=== PATIENT | male | born 1945 | race Caucasian/White ===

== ENCOUNTER 2018-12-16 04:43 | Inpatient (IN) ==
[2018-12-16] MEDS ORDERED: 0.9 % Sodium Chloride 1,000 ML IVC ONE (04:53)
[2018-12-16 05:36] LABS: Basophils # 0.1 K/mcL (0.0-0.2); Basophils % 0.6 %; Eosinophils # 0.3 K/mcL (0.0-0.6); Eosinophils % 3.2 %; Hematocrit 47.1 % (37.5-50.1); Hemoglobin 15.2 g/dL (12.9-16.9); Immature Granulocytes % 0.3 % (0-4); Lymphocytes # 1.7 K/mcL (0.6-4.6); Lymphocytes % 16.9 %; Mean Corpuscular HGB Conc 32.3 g/dL (31.6-35.5); Mean Corpuscular Hemoglobin 29.7 pg (28.0-33.3); Mean Corpuscular Volume 92.2 fL (83.0-100.0); Mean Platelet Volume 10.3 fL (9.4-12.4); Monocytes # 0.9 K/mcL (0.0-1.3); Monocytes % 8.7 %; Neutrophils # 7.2 K/mcL (1.6-8.9); Platelet Count 132 K/mcL (140-400); Red Blood Count 5.11 M/mcL (4.19-5.50); Red Cell Distribution Width 14.1 % (11.5-14.5); Segmented Neutrophils % 70.3 %
[2018-12-16 05:51] LABS: INR 1.4; Prothrombin Time 15.2 Seconds (9.4-12.1)
[2018-12-16 05:54] LABS: BUN/Creatinine Ratio 35 (6-26); Blood Urea Nitrogen 28 mg/dL (8-23); Calcium 9.5 mg/dL (8.6-10.3); Carbon Dioxide 23 mEq/L (23-29); Chloride 104 mEq/L (98-107); Glucose 102 mg/dL (70-105); Osmolality,Calculated 290 (280-300); Potassium 4.3 mEq/L (3.5-5.1); Sodium 137 mEq/L (136-145); eGFR For Non-African Americans > 60 (> 60)
[2018-12-16 05:56] LABS: Platelet Estimate Slight Decrease (Normal)
--- NOTE | 2018-12-16 07:10 | Emergency Department Note ---
Disposition Clinical Impression: GI bleed Qualifiers: GI bleed type/associated pathology: unspecified gastrointestinal hemorrhage type Qualified Code(s): K92.2 - Gastrointestinal hemorrhage, unspecified Abdominal pain Qualifiers: Abdominal location: unspecified location Qualified Code(s): R10.9 - Unspecified abdominal pain Disposition: Admitted As Inpatient Condition: Good Referrals: NONE,PCP [Primary Care Provider] - Time of Disposition: 07:13 General Adult HPI - General Stated complaint: rectal bleeding Time Seen by Provider: 12/16/18 04:44 Source: patient, EMS, other Mode of arrival: EMS Limitations: no limitations Nursing Notes Reviewed: Yes Vital Signs Reviewed: Yes - History of Present Illness HPI Narrative: Patient is a 73-year-old male that presents emergency department as a transfer via EMS from the [facility] for blood in his stool. Patient states that he was initially admitted to the [facility] for abdominal pain. Patient states that he was then given laxatives on the medical floor and this morning the patient around 2 AM developed blood in his stool. Due to the patient being on warfarin and lack a GI coverage at the [facility] he was transferred here to [place] for further care. Patient states that he still having some abdominal discomfort. Patient states that he has only had hemorrhoids one other time and that was back in the 1960s. Patient states it was bright red blood. Patient states that it was mixed in with diarrhea. Patient denies any vomiting. Patient denies any difficulty with urination. Pain Scale: 4 - Related Data Home Medications Medication Instructions Recorded Confirmed Nitroglycerin [Nitrostat] 0.4 mg SL Q5M PRN 10/27/15 10/10/18 Warfarin [Coumadin] 2.5 mg PO QMWF 01/26/16 10/10/18 Pantoprazole Sodium 40 mg PO DAILY 06/08/16 10/10/18 Aspirin [Lo-Dose Aspirin EC] 81 mg PO DAILY 04/25/17 10/10/18 Warfarin [Coumadin] 5 mg PO SUTUTHSA 04/27/17 10/10/18 Atorvastatin [Lipitor] 80 mg PO HS 08/11/17 10/10/18 Losartan Potassium [Cozaar] 25 mg PO DAILY 08/11/17 10/10/18 Magnesium Oxide [Magnesium] 400 mg PO DAILY 11/10/17 10/10/18 Metoprolol [Lopressor] 25 mg PO DAILY 05/11/18 10/10/18 Sotalol HCl [Betapace] 120 mg PO BID 05/11/18 10/10/18 Spironolactone [Aldactone] 25 mg PO DAILY 05/11/18 10/10/18 Tiotropium [Spiriva] 18 mcg IH 0700 05/11/18 10/10/18 Albuterol Neb [AccuNeb] 0.63 mg IH BID PRN 10/10/18 10/10/18 Loratadine [Claritin] 10 mg PO DAILY 10/10/18 10/10/18 Allergies Allergy/AdvReac Type Severity Reaction Status Date / Time oxycodone [Oxycodone] AdvReac Hallucinati Verified 12/16/18 04:49 ng All systems ED: reviewed and negative except as stated. Constitutional: Denies: fever Cardiovascular: Denies: chest pain Respiratory: Denies: dyspnea Gastrointestinal: Reports: abdominal pain, diarrhea, hematochezia. Denies: nausea, vomiting Genitourinary: Denies: urgency, dysuria, frequency Past Medical History - Past Medical History Medical history: Reports: aortic aneurysm, atrial fibrillation, cancer, coronary artery disease, renal disease, other Surgical history: Reports: cancer surgery, cataract, orthopedic, other, other Psychiatric history: Reports: no psych history - Social History Smoking Status: Former smoker Smokeless Tobacco Status: No Alcohol use: Reports: none Drug use: Reports: none Physical Exam - General Limitations: no limitations General appearance: alert, in no apparent distress - Head Head exam: atraumatic, normocephalic - Eye Eye exam: Present: normal appearance, EOMI - Neck Neck exam: Present: normal inspection, full ROM, trachea midline - Respiratory Respiratory exam: Present: normal lung sounds bilaterally. Absent: respiratory distress, wheezes - Cardiovascular Cardiovascular exam: Present: regular rate, normal rhythm, normal heart sounds, +S1, +S2 - Abdominal Exam Abdominal exam: Present: soft, tenderness (Generalized), normal bowel sounds Abdominal tenderness: Present: mild - Rectal Exam Drug Counselor present during exam: Yes Rectal exam: Present: normal rectal tone, heme (+) stool, hemorrhoids (External) - Neurological Exam Neurological exam: Present: alert, oriented X3 - Psychiatric Psychiatric exam: Present: normal affect, normal mood - Skin Skin exam: Present: warm, dry, intact Course Vital Signs Temperature 97.4 F L 12/16/18 04:47 Pulse Rate 88 12/16/18 04:47 Respiratory Rate 20 12/16/18 04:47 Blood Pressure 104/79 12/16/18 04:47 O2 Sat by Pulse Oximetry 96 12/16/18 04:47 Temperature 97.4 F L 12/16/18 04:51 Pulse Rate 70 12/16/18 06:00 Respiratory Rate 20 12/16/18 06:00 Blood Pressure 144/75 12/16/18 06:00 O2 Sat by Pulse Oximetry 94 12/16/18 06:00 Oxygen Delivery Oxygen Delivery Room Air Medical Decision Making - MDM Narrative Medical decision making narrative: Due the patient since emergency Department with reports of blood in his stool and being on warfarin obtain basic laboratory testing. Patient's hemoglobin is stable at greater than 15. His INR is 1.4. Remainder of his laboratory testing is relatively unremarkable. However due to the patient having a positive stool occult here in the ER and being on Coumadin and [facility] not having a [facility] or GI coverage the patient will require admission here for further monitoring. Patient is in agreement with this plan. I called and spoke with the admitting hospitalist Dr. Thompson and he is accepted the patient to their service to patient be admitted to the hospital this time for further evaluation and management of his GI bleed. - Medical Records Medical records reviewed: Yes I reviewed the patient's medical records. - Lab Data Lab results reviewed: Yes I reviewed the patient's lab results. Result diagrams: 12/16/18 05:23 12/16/18 05:23 Lab Results 12/16/18 12/16/18 12/16/18 Range/Units 05:18 05:23 05:23 WBC 10.3 (4.3-11.1) K/mcL RBC 5.11 (4.19-5.50) M/mcL Hgb 15.2 (12.9-16.9) g/dL Hct 47.1 (37.5-50.1) % MCV 92.2 (83.0-100.0) fL MCH 29.7 (28.0-33.3) pg MCHC 32.3 (31.6-35.5) g/dL RDW 14.1 (11.5-14.5) % Plt Count 132 L (140-400) K/mcL MPV 10.3 (9.4-12.4) fL Immature Gran % 0.3 (0-4) % Seg Neutrophils % 70.3 % Lymphocytes % 16.9 % Monocytes % 8.7 % Eosinophils % 3.2 % Basophils % 0.6 % Neutrophils # 7.2 (1.6-8.9) K/mcL Lymphocytes # 1.7 (0.6-4.6) K/mcL Monocytes # 0.9 (0.0-1.3) K/mcL Eosinophils # 0.3 (0.0-0.6) K/mcL Basophils # 0.1 (0.0-0.2) K/mcL Platelet Estimate Slight Decrease L (Normal) PT 15.2 H (9.4-12.1) Seconds INR 1.4 APTT 24.0 L (26.0-36.0) Seconds Sodium (136-145) mEq/L Potassium (3.5-5.1) mEq/L Chloride (98-107) mEq/L Carbon Dioxide (23-29) mEq/L BUN (8-23) mg/dL Creatinine (0.70-1.30) mg/dL Est GFR ( Amer) (> 60) Est GFR (Non-Af Amer) (> 60) BUN/Creatinine Ratio (6-26) Glucose (70-105) mg/dL Calculated Osmolality (280-300) Calcium (8.6-10.3) mg/dL Stool Occult Bld Scrn Positive A (Negative) Blood Type Antibody Screen 12/16/18 12/16/18 Range/Units 05:23 05:23 WBC (4.3-11.1) K/mcL RBC (4.19-5.50) M/mcL Hgb (12.9-16.9) g/dL Hct (37.5-50.1) % MCV (83.0-100.0) fL MCH (28.0-33.3) pg MCHC (31.6-35.5) g/dL RDW (11.5-14.5) % Plt Count (140-400) K/mcL MPV (9.4-12.4) fL Immature Gran % (0-4) % Seg Neutrophils % % Lymphocytes % % Monocytes % % Eosinophils % % Basophils % % Neutrophils # (1.6-8.9) K/mcL Lymphocytes # (0.6-4.6) K/mcL Monocytes # (0.0-1.3) K/mcL Eosinophils # (0.0-0.6) K/mcL Basophils # (0.0-0.2) K/mcL Platelet Estimate (Normal) PT (9.4-12.1) Seconds INR APTT (26.0-36.0) Seconds Sodium 137 (136-145) mEq/L Potassium 4.3 (3.5-5.1) mEq/L Chloride 104 (98-107) mEq/L Carbon Dioxide 23 (23-29) mEq/L BUN 28 H (8-23) mg/dL Creatinine 0.80 (0.70-1.30) mg/dL Est GFR ( Amer) > 60 (> 60) Est GFR (Non-Af Amer) > 60 (> 60) BUN/Creatinine Ratio 35 H (6-26) Glucose 102 (70-105) mg/dL Calculated Osmolality 290 (280-300) Calcium 9.5 (8.6-10.3) mg/dL Stool Occult Bld Scrn (Negative) Blood Type B NEGATIVE Antibody Screen NEGATIVE - Radiology Data Radiology results reviewed: Yes I reviewed the patient's radiology results.
--- NOTE | 2018-12-16 08:09 | Emergency Department Note ---
Disposition Clinical Impression: GI bleed Qualifiers: GI bleed type/associated pathology: unspecified gastrointestinal hemorrhage type Qualified Code(s): K92.2 - Gastrointestinal hemorrhage, unspecified Abdominal pain Qualifiers: Abdominal location: unspecified location Qualified Code(s): R10.9 - Unspecified abdominal pain Disposition: Admitted As Inpatient Condition: Good Referrals: NONE,PCP [Primary Care Provider] - General Adult HPI - General Chief complaint: ED GI Bleed Stated complaint: rectal bleeding Time Seen by Provider: 12/16/18 04:44 Source: patient, EMS, other Mode of arrival: EMS Limitations: no limitations Nursing Notes Reviewed: Yes Vital Signs Reviewed: Yes - History of Present Illness Pain Scale: 3 - Related Data Home Medications Medication Instructions Recorded Confirmed Nitroglycerin [Nitrostat] 0.4 mg SL Q5M PRN 10/27/15 10/10/18 Warfarin [Coumadin] 2.5 mg PO QMWF 01/26/16 10/10/18 Pantoprazole Sodium 40 mg PO DAILY 06/08/16 10/10/18 Aspirin [Lo-Dose Aspirin EC] 81 mg PO DAILY 04/25/17 10/10/18 Warfarin [Coumadin] 5 mg PO SUTUTHSA 04/27/17 10/10/18 Atorvastatin [Lipitor] 80 mg PO HS 08/11/17 10/10/18 Losartan Potassium [Cozaar] 25 mg PO DAILY 08/11/17 10/10/18 Magnesium Oxide [Magnesium] 400 mg PO DAILY 11/10/17 10/10/18 Metoprolol [Lopressor] 25 mg PO DAILY 05/11/18 10/10/18 Sotalol HCl [Betapace] 120 mg PO BID 05/11/18 10/10/18 Spironolactone [Aldactone] 25 mg PO DAILY 05/11/18 10/10/18 Tiotropium [Spiriva] 18 mcg IH 0700 05/11/18 10/10/18 Albuterol Neb [AccuNeb] 0.63 mg IH BID PRN 10/10/18 10/10/18 Loratadine [Claritin] 10 mg PO DAILY 10/10/18 10/10/18 Allergies Allergy/AdvReac Type Severity Reaction Status Date / Time oxycodone [Oxycodone] AdvReac Hallucinati Verified 12/16/18 04:49 ng Constitutional: Denies: fever Cardiovascular: Denies: chest pain Respiratory: Denies: dyspnea Gastrointestinal: Reports: abdominal pain, diarrhea, hematochezia. Denies: nausea, vomiting Genitourinary: Denies: urgency, dysuria, frequency Past Medical History - Past Medical History Medical history: Reports: aortic aneurysm, atrial fibrillation, cancer, coronary artery disease, renal disease, other Surgical history: Reports: cancer surgery, cataract, orthopedic, other, other Psychiatric history: Reports: no psych history - Social History Smoking Status: Former smoker Smokeless Tobacco Status: No Alcohol use: Reports: none Drug use: Reports: none Physical Exam - General Limitations: no limitations General appearance: alert, in no apparent distress Course Vital Signs Temperature 97.4 F L 12/16/18 04:47 Pulse Rate 88 12/16/18 04:47 Respiratory Rate 20 12/16/18 04:47 Blood Pressure 104/79 12/16/18 04:47 O2 Sat by Pulse Oximetry 96 12/16/18 04:47 Temperature 97.4 F L 12/16/18 04:51 Pulse Rate 71 12/16/18 07:48 Respiratory Rate 20 12/16/18 07:48 Blood Pressure 131/78 12/16/18 07:48 O2 Sat by Pulse Oximetry 93 12/16/18 07:48 Oxygen Delivery Oxygen Delivery Room Air Medical Decision Making - Medical Records Medical records reviewed: Yes I reviewed the patient's medical records. - Lab Data Lab results reviewed: Yes I reviewed the patient's lab results. Result diagrams: 12/16/18 05:23 12/16/18 05:23 Lab Results 12/16/18 12/16/18 12/16/18 Range/Units 05:18 05:23 05:23 WBC 10.3 (4.3-11.1) K/mcL RBC 5.11 (4.19-5.50) M/mcL Hgb 15.2 (12.9-16.9) g/dL Hct 47.1 (37.5-50.1) % MCV 92.2 (83.0-100.0) fL MCH 29.7 (28.0-33.3) pg MCHC 32.3 (31.6-35.5) g/dL RDW 14.1 (11.5-14.5) % Plt Count 132 L (140-400) K/mcL MPV 10.3 (9.4-12.4) fL Immature Gran % 0.3 (0-4) % Seg Neutrophils % 70.3 % Lymphocytes % 16.9 % Monocytes % 8.7 % Eosinophils % 3.2 % Basophils % 0.6 % Neutrophils # 7.2 (1.6-8.9) K/mcL Lymphocytes # 1.7 (0.6-4.6) K/mcL Monocytes # 0.9 (0.0-1.3) K/mcL Eosinophils # 0.3 (0.0-0.6) K/mcL Basophils # 0.1 (0.0-0.2) K/mcL Platelet Estimate Slight Decrease L (Normal) PT 15.2 H (9.4-12.1) Seconds INR 1.4 APTT 24.0 L (26.0-36.0) Seconds Sodium (136-145) mEq/L Potassium (3.5-5.1) mEq/L Chloride (98-107) mEq/L Carbon Dioxide (23-29) mEq/L BUN (8-23) mg/dL Creatinine (0.70-1.30) mg/dL Est GFR ( Amer) (> 60) Est GFR (Non-Af Amer) (> 60) BUN/Creatinine Ratio (6-26) Glucose (70-105) mg/dL Calculated Osmolality (280-300) Calcium (8.6-10.3) mg/dL Stool Occult Bld Scrn Positive A (Negative) Blood Type Antibody Screen 12/16/18 12/16/18 Range/Units 05:23 05:23 WBC (4.3-11.1) K/mcL RBC (4.19-5.50) M/mcL Hgb (12.9-16.9) g/dL Hct (37.5-50.1) % MCV (83.0-100.0) fL MCH (28.0-33.3) pg MCHC (31.6-35.5) g/dL RDW (11.5-14.5) % Plt Count (140-400) K/mcL MPV (9.4-12.4) fL Immature Gran % (0-4) % Seg Neutrophils % % Lymphocytes % % Monocytes % % Eosinophils % % Basophils % % Neutrophils # (1.6-8.9) K/mcL Lymphocytes # (0.6-4.6) K/mcL Monocytes # (0.0-1.3) K/mcL Eosinophils # (0.0-0.6) K/mcL Basophils # (0.0-0.2) K/mcL Platelet Estimate (Normal) PT (9.4-12.1) Seconds INR APTT (26.0-36.0) Seconds Sodium 137 (136-145) mEq/L Potassium 4.3 (3.5-5.1) mEq/L Chloride 104 (98-107) mEq/L Carbon Dioxide 23 (23-29) mEq/L BUN 28 H (8-23) mg/dL Creatinine 0.80 (0.70-1.30) mg/dL Est GFR ( Amer) > 60 (> 60) Est GFR (Non-Af Amer) > 60 (> 60) BUN/Creatinine Ratio 35 H (6-26) Glucose 102 (70-105) mg/dL Calculated Osmolality 290 (280-300) Calcium 9.5 (8.6-10.3) mg/dL Stool Occult Bld Scrn (Negative) Blood Type B NEGATIVE Antibody Screen NEGATIVE Attestation Statement - Attestation Attestation: I, Ashutosh Pena MD, personally evaluated this patient and discussed their management with the resident physician. I reviewed the resident's note and agree with the documented findings, medical decision making, and plan of care. 73-year-old male who is admitted to the [facility] yesterday afternoon for complaint of abdominal pain. He was given some laxatives there and had several bowel movements during the night and then developed grossly bloody bowel movements a couple of times. He continues to complain of abdominal pain. He had a workup including a CT of the abdomen and pelvis. Patient is on Coumadin. He is transferred here because they do not have surgical or GI back up at the [facility]. Patient reports that he has had low blood pressures for the past for 5 days and abdominal pain for the past 2 or 3 days. No prior history of GI bleed. On examination patient is a well-developed well-nourished elderly male in no acute distress. He is alert and oriented 3. There is no cyanosis or diaphoresis. Breath sounds are clear and equal bilaterally. Heart regular rate and rhythm. Abdomen is soft with increased bowel sounds. Nontender to palpation. Labs reviewed. The hospitalist, Dr. Thompson, was consulted and accepted admission of the patient.
[2018-12-16] MEDS ORDERED: Acetaminophen 325 MG TABLET PO PRN (09:00)
[2018-12-16] MEDS ORDERED: Ondansetron 4 MG/2 ML VIAL IVP PRN (09:00)
[2018-12-16] MEDS ORDERED: Albuterol Neb 0.63 MG/3 ML VIAL IH PRN (09:14)
--- NOTE | 2018-12-16 09:15 | Internal Med History&Physical ---
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 Patient states his pain is mild, and improved with laxatives that made him have BM. However, the BM had a very large amount of blood per his and family's report. He is on warfarin for his A-Fib. He's had GI bleeds before, with most recent EGD here in 08/2018, and last colonoscopy over at [facility] was 1 month ago with no abnormalities/interventions at that time. He denies any dizziness or confusion, N/V, dysuria, edema, CP, or SOB. He was transferred to this facility due to no GI coverage at the [facility]. In the ED, pt vitals unremarkable and Hb 15, no episodes bloody bowel movements here. Pt type&screened, given bolus, and admitted for observation. Past medical, surgical, social, and family histories reviewed and updated as below. Past Med Surg Social Fam HX - Past Medical History Medical history: aortic aneurysm, atrial fibrillation, cancer, coronary artery disease, renal disease, other Additional medical history: lower intestine cancer-Whipple procedure for Psychiatric history: no psych history - Past Surgical History Surgical History: cancer surgery, cataract, orthopedic, other, other Additional surgical history: LHC,AAA repair, rt elbow,whipple, defib - Social History Smoking Status: Former smoker Smokeless Tobacco Status: No Alcohol use: none Drug use: none - Family History Sister Adopted: No Living Status: Still Living Hx Family Cardiac Disorders: No Hx Family Respiratory Disorders: No Hx Family Cancer: Yes Hx Family Endocrine Disorder: Yes Hx Family Neuromuscular Disorders: No Hx Family Neurologic Disorders: No Hx Family HEENT Disorders: No Hx Family Autoimmune Disorders: No Internal Medicine - H&P: Meds Nitroglycerin [Nitrostat] 0.4 mg SL Q5M PRN 10/27/15 [History] Warfarin [Coumadin] 2.5 mg PO QMWF 05/02/16 [History] Pantoprazole Sodium 40 mg PO DAILY 06/08/16 [History] Aspirin [Lo-Dose Aspirin EC] 81 mg PO DAILY 04/25/17 [History] Warfarin [Coumadin] 5 mg PO SUTUTHSA 04/27/17 [History] Atorvastatin [Lipitor] 80 mg PO HS 08/11/17 [History] Losartan Potassium [Cozaar] 25 mg PO DAILY 08/11/17 [History] Magnesium Oxide [Magnesium] 400 mg PO DAILY 11/10/17 [History] Metoprolol [Lopressor] 25 mg PO DAILY 05/11/18 [History] Sotalol HCl [Betapace] 120 mg PO BID 05/11/18 [History] Spironolactone [Aldactone] 25 mg PO DAILY 05/11/18 [History] Tiotropium [Spiriva] 18 mcg IH 0700 05/11/18 [History] Albuterol Neb [AccuNeb] 0.63 mg IH BID PRN 10/10/18 [History] Loratadine [Claritin] 10 mg PO DAILY 10/10/18 [History] Allergy/AdvReac Type Severity Reaction Status Date / Time oxycodone [Oxycodone] AdvReac Hallucinati Verified 12/16/18 04:49 ng All Systems PM: A 10-system review of systems was performed and is negative for pertinent findings except as documented above in the HPI. - Constitutional Vitals: Temp Pulse Resp BP Pulse Ox 97.4 F L 71 20 131/78 93 12/16/18 04:51 12/16/18 07:48 12/16/18 07:48 12/16/18 07:48 12/16/18 07:48 Exam: General: NAD, good eye contact, well appearing, in good spirits, thin but not emaciated Head: Atraumatic, normocephalic. Face symmetric Eyes: EOMI, sclerae anicteric ENT: Mucous membranes moist. Normal oral mucosa and dentition. Trachea midline. Thoracic: No visible chest wall deformities. Normal breath sounds b/l, no wheezing or crackles Cardio: Normal S1 and S2, regular rate and rhythm, no murmurs. Abdomen: Soft, nontender, nondistended. Bowel sounds present. No rebound. Does have abd scars from s/p Whipple. Extremities: Warm, well perfused. DP pulses 2+ b/l. No clubbing, cyanosis. No edema Skin: Intact. No rashes, bruises, or ulcers Neuro: Awake, fully oriented. Good memory, concentration, attention. Speech fluent. CN II-XII grossly intact. 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 GIB: hemodynamically stable, hb wnl, no episodes of bleeding here. Did have upper endoscopy in 08/2018 - T&C - monitor Hb - PPI IV bid - clear liquid diet - GenSurg Dr Hung consult, will plan for colonoscopy in AM Subtherapeutic INR: on admit is 1.4, will allow to downtrend and hold warfarin Thrombocytopenia: platelet count oscillating from 50-500k in our records, on admit is 130, will monitor and consider heme consult if continues to drop HFrEF 35%: s/p ICD, not overloaded but rec'd 1L NS in ED so will closely monitor, continue home ACEi and elmer, home lopressor should be changed to Toprol CAD/HLD: ASA, statin A-Fib: AC on warfarin which is being held, rate on lopressor 25 daily Underweight: BMI 18, concern for malnutrition in this s/p Whipple patient, nutrition consult PPx: SCDs FEN: clears, no MIVF Lines: PIV Consults: GenSurg Code: Full Dispo: Admit for GI bleeding, will be homegoing
[2018-12-16] MEDS ORDERED: Pantoprazole 40 MG in 0.9 % Sodium Chloride 50 ML IVPB ONE (09:16)
[2018-12-16] MEDS ORDERED: Pantoprazole 40 MG in 0.9 % Sodium Chloride Mini Bag 100 ML IVPB ONE ×2 (09:30→09:40)
[2018-12-16] MEDS ORDERED: Pantoprazole 40 MG in 0.9 % Sodium Chloride 100 ML IVPB ONE (09:40)
[2018-12-16] MEDS ORDERED: Pantoprazole 40 MG in 0.9 % Sodium Chloride Mini Bag 100 ML IVPB SCH (09:40)
--- NOTE | 2018-12-16 13:03 | General Surgery Consult Note ---
<Vimal Raymundo - Last Filed: 12/16/18 13:07> Date of Encounter: 12/16/18 Time of Encounter: 10:00 Assessment and Plan (1) BRBPR (bright red blood per rectum) Current Visit: Yes Status: Acute -Single episode "large amount" BRBPR at [facility] prior to transfer here -Mild bilat lower abdominal pain last few days -Possibly 2/2 ischemic colitis as he indicated his BP was 70s/40s on home BP machine prior to being called to come to [facility] for evaluation -Most recent BP since receiving IVF 141/83 -Has not had any further bloody stools -Hgb 15.2 on arrival, BUN mildly elevated at 28, stool occult pos, and INR 1.4 on home warfarin for afib -Awaiting CT abd image upload which was performed at [facility] -Self reported normal colonoscopy 3-4 weeks ago performed at [facility] -Will bowel prep with miralax today and make NPO at midnight for planned endoscopic procedure tomorrow morning (2) Abdominal pain Current Visit: Yes Status: Acute -Vague, mild bilateral lower abdominal pain over last few days -Pain improved now without pain meds Qualifiers: Abdominal location: lower abdomen, unspecified Qualified Code(s): R10.30 - Lower abdominal pain, unspecified History of Present Illness Consult date: 12/16/18 Reason for consult: other (bloody stool) Requesting physician: Melchor Thompson History of present illness: Pmh significant for 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 He has had bilateral lower abdominal discomfort over the last 2-3 days. Additionally, he has had decreased appetite, 15 pund weight loss, and periods of dizziness in orthostatic pattern over last few weeks. He checks daily blood pressure at home which is evaluated by [facility] daily. He had a reading of 70s/40s yesterday with normals being more 110s-120s systolic and was called to go to [facility] for evaluation. He was found to be orthostatic hypotensive and recieved 2L IVF along with laxitives as he said he last had BM on which is unusual for him given prior whipple. Around 0300 this morning he had a "large" bright red bloody BM which prompted transfer to [place]. He indicated abdominal pain improved some after the BM but prior to he did not feel urge to defecate. He denied diplopia, blurry vision, chest pain, dyspnea, N/V, any further bloody BM. He last had colonoscopy 3-4 weeks ago which he reports was normal. Upon arrival here, he was hemodynamically stable, received an additional L IVF, hgb 15.2, BUN 28, INR 1.4, and stool occult pos. Past Med Surg Social Fam HX - Past Medical History Medical history: aortic aneurysm, atrial fibrillation, cancer, coronary artery disease, renal disease, other Additional medical history: lower intestine cancer-Whipple procedure for Psychiatric history: no psych history - Past Surgical History Surgical History: cancer surgery, cataract, orthopedic, other, other Additional surgical history: LHC,AAA repair, rt elbow,whipple, defib - Social History Smoking Status: Former smoker Smokeless Tobacco Status: No Alcohol use: none Drug use: none - Family History Father Living Status: Age at : 73 Cause of : Aortic aneurysm Sister Adopted: No Living Status: Still Living Age at : 61 Cause of : Lung cancer Hx Family Cardiac Disorders: No Hx Family Respiratory Disorders: No Hx Family Cancer: Yes Hx Family Endocrine Disorder: Yes Hx Family Neuromuscular Disorders: No Hx Family Neurologic Disorders: No Hx Family HEENT Disorders: No Hx Family Autoimmune Disorders: No Medications and Allergies RX: Nitroglycerin [Nitrostat] 0.4 mg SL Q5M PRN 10/27/15 [History] RX: Warfarin [Coumadin] 2.5 mg PO QMWF 01/26/16 [History] RX: Pantoprazole Sodium 40 mg PO DAILY 06/08/16 [History] RX: Aspirin [Lo-Dose Aspirin EC] 81 mg PO DAILY 04/25/17 [History] Warfarin [Coumadin] 5 mg PO SUTUTHSA 04/27/17 [History] Atorvastatin [Lipitor] 80 mg PO HS 08/11/17 [History] Losartan Potassium [Cozaar] 25 mg PO DAILY 08/11/17 [History] Magnesium Oxide [Magnesium] 400 mg PO DAILY 11/10/17 [History] Metoprolol [Lopressor] 25 mg PO DAILY 05/11/18 [History] RX: Sotalol HCl [Betapace] 120 mg PO BID 05/11/18 [History] Spironolactone [Aldactone] 25 mg PO DAILY 05/11/18 [History] Tiotropium [Spiriva] 18 mcg IH 0700 05/11/18 [History] Albuterol Neb [AccuNeb] 0.63 mg IH BID PRN 10/10/18 [History] RX: Loratadine [Claritin] 10 mg PO DAILY 10/10/18 [History] Allergy/AdvReac Type Severity Reaction Status Date / Time oxycodone [Oxycodone] AdvReac Hallucinati Verified 12/16/18 04:49 ng Review of Systems All systems PM: The remainder of the systems were reviewed and are negative General Surgery Exam Initial Vital Signs Temp Pulse Resp BP Pulse Ox 97.4 F L 88 20 104/79 96 12/16/18 04:47 12/16/18 04:47 12/16/18 04:47 12/16/18 04:47 12/16/18 04:47 - General physical appearance well developed, well nourished, no distress - Eyes normal ocular movement - ENT dry mucosa - Neck trachea midline - Respiratory normal expansion, normal respiratory effort, clear to auscultation - Cardiovascular Cardiovascular exam: Present: RRR. Absent: bradycardia, tachycardia, irregular rhythm, murmurs, clicks, rubs, gallop, distant heart sounds, JVD - Abdomen Abdomen general surgery: Present: bowel sounds present, soft, tender (mild). Absent: distended, organomegaly, masses, guarding, rebound, rigid, peritoneal - Integumentary Integumentary general surgery: Present: warm and dry - Neurologic Present: CN 2-12 grossly intact, normal coordination - Psychiatric Psychiatric general surgery: Present: A&Ox3, appropriate Exam Initial Vital Signs Temp Pulse Resp BP Pulse Ox 97.4 F L 88 20 104/79 96 12/16/18 04:47 12/16/18 04:47 12/16/18 04:47 12/16/18 04:47 12/16/18 04:47 Results - Labs 12/16/18 05:23 12/16/18 05:23 Abnormal lab results Plt Count 132 K/mcL (140-400) L 12/16/18 05:23 Platelet Estimate Slight Decrease (Normal) L 12/16/18 05:23 PT 15.2 Seconds (9.4-12.1) H 12/16/18 05:23 APTT 24.0 Seconds (26.0-36.0) L 12/16/18 05:23 BUN 28 mg/dL (8-23) H 12/16/18 05:23 BUN/Creatinine Ratio 35 (6-26) H 12/16/18 05:23 Stool Occult Bld Scrn Positive (Negative) A 12/16/18 05:18 Diabetes panel 12/16/18 Range/Units 05:23 Sodium 137 (136-145) mEq/L Potassium 4.3 (3.5-5.1) mEq/L Chloride 104 (98-107) mEq/L Carbon Dioxide 23 (23-29) mEq/L BUN 28 H (8-23) mg/dL Creatinine 0.80 (0.70-1.30) mg/dL Glucose 102 (70-105) mg/dL Calcium 9.5 (8.6-10.3) mg/dL Calcium panel 12/16/18 Range/Units 05:23 Calcium 9.5 (8.6-10.3) mg/dL Pituitary panel 12/16/18 Range/Units 05:23 Sodium 137 (136-145) mEq/L Potassium 4.3 (3.5-5.1) mEq/L Chloride 104 (98-107) mEq/L Carbon Dioxide 23 (23-29) mEq/L BUN 28 H (8-23) mg/dL Creatinine 0.80 (0.70-1.30) mg/dL Glucose 102 (70-105) mg/dL Calcium 9.5 (8.6-10.3) mg/dL Adrenal panel 12/16/18 Range/Units 05:23 Sodium 137 (136-145) mEq/L Potassium 4.3 (3.5-5.1) mEq/L Chloride 104 (98-107) mEq/L Carbon Dioxide 23 (23-29) mEq/L BUN 28 H (8-23) mg/dL Creatinine 0.80 (0.70-1.30) mg/dL Glucose 102 (70-105) mg/dL Calcium 9.5 (8.6-10.3) mg/dL All other labs normal. Consult Discharge Plan - Plan Referrals: NONE,PCP [Primary Care Provider] - <Renan Hung - Last Filed: 12/16/18 20:06> Date of Encounter: 12/16/18 Review of Systems All systems PM: The remainder of the systems were reviewed and are negative General Surgery Exam Initial Vital Signs Temp Pulse Resp BP Pulse Ox 97.4 F L 88 20 104/79 96 12/16/18 04:47 12/16/18 04:47 12/16/18 04:47 12/16/18 04:47 12/16/18 04:47 Exam Initial Vital Signs Temp Pulse Resp BP Pulse Ox 97.4 F L 88 20 104/79 96 12/16/18 04:47 12/16/18 04:47 12/16/18 04:47 12/16/18 04:47 12/16/18 04:47 Results - Labs 12/16/18 05:23 12/16/18 05:23 Abnormal lab results Plt Count 132 K/mcL (140-400) L 12/16/18 05:23 Platelet Estimate Slight Decrease (Normal) L 12/16/18 05:23 PT 15.2 Seconds (9.4-12.1) H 12/16/18 05:23 APTT 24.0 Seconds (26.0-36.0) L 12/16/18 05:23 BUN 28 mg/dL (8-23) H 12/16/18 05:23 BUN/Creatinine Ratio 35 (6-26) H 12/16/18 05:23 Stool Occult Bld Scrn Positive (Negative) A 12/16/18 05:18 Diabetes panel 12/16/18 Range/Units 05:23 Sodium 137 (136-145) mEq/L Potassium 4.3 (3.5-5.1) mEq/L Chloride 104 (98-107) mEq/L Carbon Dioxide 23 (23-29) mEq/L BUN 28 H (8-23) mg/dL Creatinine 0.80 (0.70-1.30) mg/dL Glucose 102 (70-105) mg/dL Calcium 9.5 (8.6-10.3) mg/dL Calcium panel 12/16/18 Range/Units 05:23 Calcium 9.5 (8.6-10.3) mg/dL Pituitary panel 12/16/18 Range/Units 05:23 Sodium 137 (136-145) mEq/L Potassium 4.3 (3.5-5.1) mEq/L Chloride 104 (98-107) mEq/L Carbon Dioxide 23 (23-29) mEq/L BUN 28 H (8-23) mg/dL Creatinine 0.80 (0.70-1.30) mg/dL Glucose 102 (70-105) mg/dL Calcium 9.5 (8.6-10.3) mg/dL Adrenal panel 12/16/18 Range/Units 05:23 Sodium 137 (136-145) mEq/L Potassium 4.3 (3.5-5.1) mEq/L Chloride 104 (98-107) mEq/L Carbon Dioxide 23 (23-29) mEq/L BUN 28 H (8-23) mg/dL Creatinine 0.80 (0.70-1.30) mg/dL Glucose 102 (70-105) mg/dL Calcium 9.5 (8.6-10.3) mg/dL All other labs normal. - Attending Attestation I have personally seen and examined the patient. I have reviewed pertinent labs, imaging, progress notes, including this one. I have discussed the plan in thorough detail with the resident and nurse practitioner. I agree with the above assessment and plan and wish to add he following... 73M with LGIB; HDS; last colonscopy within the last month, but no reports of any issues; no record of prior scopes however trend h/h monitor vitals CLD, bowel prep NPO at midnight EGD, colonoscopy in AM
[2018-12-16] MEDS: Metoprolol XL (24 HR) Succ 25 MG TAB.ER.24H PO SCH ×2 (13:40→13:43)
[2018-12-16] MEDS ORDERED: Isovue-370 500 ML BOTTLE IVP ONE (14:39)
[2018-12-16] MEDS ORDERED: Pantoprazole 40 MG VIAL IVP SCH (18:00)
--- NOTE | 2018-12-17 01:55 | Event Note ---
Date of Encounter: 12/17/18 Time of Encounter: 00:32 Notified by nurse of tele notifying of possible runs vtach. Assessed patient at bedside, asymptomatic, and vitals stable. Patient states he has pacemaker/defibrillator. Also states he had recent ablation at [facility] 3-4 months ago for "erratic" heart beat but is otherwise unable to describe further. EKG obtained and tele reviewed with Dr Phan. Will order stat labs now, order cardiology consult, continue telemetry, nurse to notify of any changes.
[2018-12-17 02:46] LABS: Basophils % 0.4 %; Eosinophils # 0.4 K/mcL (0.0-0.6); Eosinophils % 3.8 %; Hematocrit 37.6 % (37.5-50.1); Hemoglobin 12.2 g/dL (12.9-16.9); Immature Granulocytes % 0.4 % (0-4); Lymphocytes # 1.4 K/mcL (0.6-4.6); Lymphocytes % 14.1 %; Mean Corpuscular HGB Conc 32.4 g/dL (31.6-35.5); Mean Corpuscular Volume 92.6 fL (83.0-100.0); Mean Platelet Volume 10.9 fL (9.4-12.4); Monocytes % 10.1 %; Neutrophils # 7.1 K/mcL (1.6-8.9); Platelet Count 110 K/mcL (140-400); Red Blood Count 4.06 M/mcL (4.19-5.50); Red Cell Distribution Width 13.9 % (11.5-14.5); Segmented Neutrophils % 71.2 %
[2018-12-17 03:07] LABS: BUN/Creatinine Ratio 30 (6-26); Blood Urea Nitrogen 21 mg/dL (8-23); Calcium 8.5 mg/dL (8.6-10.3); Carbon Dioxide 23 mEq/L (23-29); Chloride 104 mEq/L (98-107); Glucose 86 mg/dL (70-105); Magnesium 1.2 mg/dL (1.6-2.6); Osmolality,Calculated 286 (280-300); Phosphorous 3.1 mg/dL (2.7-4.5); Potassium 4.2 mEq/L (3.5-5.1); Sodium 137 mEq/L (136-145); Troponin I < 0.03 ng/mL (< 0.04); eGFR For Non-African Americans > 60 (> 60)
[2018-12-17] MEDS ORDERED: Amiodarone Premix 150 MG/100 ML BAG IVPB ONE ×2 (03:28→03:30)
[2018-12-17] MEDS ORDERED: Acetaminophen 325 MG TABLET PO PRN (03:28)
[2018-12-17] MEDS ORDERED: Ondansetron 4 MG/2 ML VIAL IVP PRN (03:28)
[2018-12-17] MEDS ORDERED: Albuterol Neb 0.63 MG/3 ML VIAL IH PRN (03:28)
[2018-12-17] MEDS ORDERED: Amiodarone Premix 360 MG/200 ML BAG IVC ONE ×2 (03:30)
[2018-12-17] MEDS: Pantoprazole 40 MG VIAL IVP SCH ×2 (05:14→18:06)
[2018-12-17] MEDS ORDERED: Tiotropium 18 MCG inhalation IH SCH (07:00)
[2018-12-17] MEDS: Tiotropium 18 MCG inhalation IH SCH (07:21)
[2018-12-17] MEDS ORDERED: Lidocaine -MPF 2% 2 ML VIAL ONE (07:24)
[2018-12-17] MEDS ORDERED: Propofol 500 MG/50 ML INFUS..BTL ONE (07:24)
[2018-12-17] MEDS ORDERED: *HR* PHENYLEPHRINE 1,000 MCG/10 ML SYRINGE IVP ONE ×2 (07:26→08:04)
[2018-12-17] MEDS ORDERED: *HR* Midazolam HCl 5 MG/5 ML VIAL IVP ONE (07:50)
[2018-12-17] MEDS ORDERED: *HR* FentaNYL (PF) 100 MCG/2 ML VIAL ONE (07:50)
[2018-12-17] MEDS ORDERED: EPHEDrine 50 MG/ML VIAL ONE (07:58)
--- NOTE | 2018-12-17 08:24 | Pre-Sedation Evaluation ---
Pre-sedation evaluation - Pre-sedation checklist Date of procedure: 12/17/18 Procedure: EGD/Colonoscopy Recent Vitals: Last Vital Signs Temp 97.6 F 12/17/18 08:13 Pulse 74 12/17/18 08:13 Resp 18 12/17/18 08:13 BP 130/73 12/17/18 08:13 Pulse Ox 100 12/17/18 08:13 H&P (including ROS) documented in medical record: Yes Previous reaction to sedatives/anesthetics: No Dietary Status: NPO after Midnight Dentition: No loose teeth or bridges ASA Classification *see protocol: CLASS II-Mild systemic disease, CLASS III-Simona re systemic disease Plan of Care: Pt appropriate candidate for procedure/moderate/conscious sedation, Risks/benefits of procedure/sedation discussed w/ patient/family
--- NOTE | 2018-12-17 08:27 | Anesthesia Evaluation PreOp ---
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 Other Medical History: Denies Any Significant HX Anesthesia History: No Prior Anesthetic Complications Alcohol Use: none Drug use: none Medications and Allergies Nitroglycerin [Nitrostat] 0.4 mg SL Q5M PRN 10/27/15 [History] Warfarin [Coumadin] 2.5 mg PO QMWF 01/26/16 [History] Pantoprazole Sodium 40 mg PO DAILY 06/08/16 [History] Aspirin [Lo-Dose Aspirin EC] 81 mg PO DAILY 04/25/17 [History] Warfarin [Coumadin] 5 mg PO SUTUTHSA 04/27/17 [History] Atorvastatin [Lipitor] 80 mg PO HS 08/11/17 [History] Losartan Potassium [Cozaar] 25 mg PO DAILY 08/11/17 [History] Magnesium Oxide [Magnesium] 400 mg PO DAILY 11/10/17 [History] Metoprolol [Lopressor] 12.5 mg PO DAILY 05/11/18 [History] Sotalol HCl [Betapace] 120 mg PO DAILY 05/11/18 [History] Spironolactone [Aldactone] 25 mg PO DAILY 05/11/18 [History] Tiotropium [Spiriva] 18 mcg IH 0700 05/11/18 [History] Albuterol Neb [AccuNeb] 0.63 mg IH BID PRN 10/10/18 [History] Allergy/AdvReac Type Severity Reaction Status Date / Time oxycodone [Oxycodone] AdvReac Hallucinati Verified 12/16/18 04:49 ng - Meds/Allergy Pre-op Review Medications Reviewed: Yes Allergies Reviewed: Yes Beta Blockers on Current Med List: Yes (Amiodarone Drip) Anesthesia Results - Labs 12/17/18 02:01 12/17/18 02:01 - Imaging EKG: report reviewed (SR incomplete Bundle Block) Anesthesia Exam Vital Signs/O2 Sat/Glucose, Most Current Temp Pulse Resp BP Pulse Ox 12/17/18 08:13 97.6 F 74 18 130/73 100 12/17/18 07:39 70 18 99 03/24/19 07:22 97.7 F 70 18 118/71 97 12/17/18 06:00 68 95/67 12/17/18 05:00 71 106/65 Height: 5'10 Weight: 128 lbs NPO (# of Hours): MN Pain Scale: 0 - HEENT Pupil (Motor): Pupils equal, EOMI Mallampati: III Teeth: Missing Oral Opening: Less than or equal to 3 - 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
[2018-12-17] MEDS ORDERED: Tetracaine/Benzocaine/Butamben 1 SPRAY AEROSOL MM ONE (08:53)
[2018-12-17] MEDS ORDERED: Aspirin Enteric Coated 81 MG Tablet PO SCH (09:00)
[2018-12-17] MEDS ORDERED: Metoprolol XL (24 HR) Succ 25 MG TAB.ER.24H PO SCH (09:00)
[2018-12-17] MEDS ORDERED: Spironolactone 25 MG TABLET PO SCH (09:00)
--- NOTE | 2018-12-17 09:16 | General Surgery Progress Note ---
Date of Encounter: 12/17/18 Time of Encounter: 09:13 - Assessment and Plan (1) Bloody stool Current Visit: Yes Status: Acute 73M with LGIB with associated lightheadedness; now s/p EGD, colonoscopy; gastritis and small gastric ulcers, no signs of bleedings; colonscopy demonstrated colon with bloody stool, prep was less than perfect, but no source of bleeding; believe it is coming from the small intestine diet, activity, etc per primary team consult GI for possible pill endoscopy vs repeat scope with intubation of terminal ileum and push endoscopy trend h/h hold NSAIDs PPI, carafate will continue to follow Subjective Patient reports: no new complaints, feels better, bowel movement, blood in stool, afebrile Objective Vital Signs - Last 8 Hours Temp Pulse Resp BP Pulse Ox 12/17/18 08:13 97.6 F 74 18 130/73 100 12/17/18 07:39 70 18 99 12/17/18 07:22 97.7 F 70 18 118/71 97 12/17/18 06:00 68 95/67 12/17/18 05:00 71 106/65 12/17/18 04:03 74 95/66 12/17/18 03:34 97.7 F 77 19 135/89 97 Intake and Output 12/16/18 12/17/18 12/17/18 23:59 07:59 15:59 Intake Total 240 / 240 100 / 100 Balance 240 / 240 100 / 100 Intake: IV Fluids 100 / 100 Amiodarone Premix 150mg/100mL 100 / 100 150 mg In 100 ml @ 300 mls/hr IVPB ONCE ONE Rx#:[id number] Oral 240 / 240 Other: Stool Size Moderate Stool Consistency soft Stool Color Brown # Voids 1 # Bowel Movements 1 Weight 58.1 kg Patient Weight 12/17/18 23:59 Weight 58.1 kg - General physical appearance no distress - Respiratory normal expansion, normal respiratory effort - Cardiovascular Cardiovascular exam: Present: RRR - Abdomen Abdomen: Present: soft, non tender - Rectum normal sphincter tone - Neurologic CN 2-12 grossly intact - Psychiatric oriented to time, oriented to person, oriented to place - Labs 12/17/18 02:01 12/17/18 02:01 Diabetes panel 12/17/18 Range/Units 02:01 Sodium 137 (136-145) mEq/L Potassium 4.2 (3.5-5.1) mEq/L Chloride 104 (98-107) mEq/L Carbon Dioxide 23 (23-29) mEq/L BUN 21 (8-23) mg/dL Creatinine 0.69 L (0.70-1.30) mg/dL Glucose 86 (70-105) mg/dL Calcium 8.5 L (8.6-10.3) mg/dL Calcium panel 12/17/18 Range/Units 02:01 Calcium 8.5 L (8.6-10.3) mg/dL Phosphorus 3.1 (2.7-4.5) mg/dL Pituitary panel 12/17/18 Range/Units 02:01 Sodium 137 (136-145) mEq/L Potassium 4.2 (3.5-5.1) mEq/L Chloride 104 (98-107) mEq/L Carbon Dioxide 23 (23-29) mEq/L BUN 21 (8-23) mg/dL Creatinine 0.69 L (0.70-1.30) mg/dL Glucose 86 (70-105) mg/dL Calcium 8.5 L (8.6-10.3) mg/dL Adrenal panel 12/17/18 Range/Units 02:01 Sodium 137 (136-145) mEq/L Potassium 4.2 (3.5-5.1) mEq/L Chloride 104 (98-107) mEq/L Carbon Dioxide 23 (23-29) mEq/L BUN 21 (8-23) mg/dL Creatinine 0.69 L (0.70-1.30) mg/dL Glucose 86 (70-105) mg/dL Calcium 8.5 L (8.6-10.3) mg/dL - VTE Reasons for not Prescribing Prophylaxis: Medical contraindication Consult Discharge Plan - Plan Referrals: NONE,PCP [Primary Care Provider] -
[2018-12-17] MEDS ORDERED: Amiodarone Premix 360 MG/200 ML BAG IVC SCH ×2 (09:30)
[2018-12-17] MEDS: Spironolactone 25 MG TABLET PO SCH (10:40)
[2018-12-17] MEDS: Aspirin Enteric Coated 81 MG Tablet PO SCH (10:41)
[2018-12-17 10:44] LABS: BUN/Creatinine Ratio 24 (6-26); Blood Urea Nitrogen 16 mg/dL (8-23); Calcium 8.3 mg/dL (8.6-10.3); Carbon Dioxide 25 mEq/L (23-29); Chloride 106 mEq/L (98-107); Glucose 114 mg/dL (70-105); Magnesium 1.5 mg/dL (1.6-2.6); Osmolality,Calculated 286 (280-300); Potassium 4.1 mEq/L (3.5-5.1); Sodium 137 mEq/L (136-145); eGFR For Non-African Americans > 60 (> 60)
[2018-12-17 10:48] LABS: Basophils % 0.4 %; Eosinophils # 0.3 K/mcL (0.0-0.6); Eosinophils % 3.3 %; Hematocrit 35.6 % (37.5-50.1); Hemoglobin 11.7 g/dL (12.9-16.9); Immature Granulocytes % 0.5 % (0-4); Lymphocytes # 1.1 K/mcL (0.6-4.6); Lymphocytes % 12.7 %; Mean Corpuscular HGB Conc 32.9 g/dL (31.6-35.5); Mean Corpuscular Hemoglobin 29.8 pg (28.0-33.3); Mean Corpuscular Volume 90.8 fL (83.0-100.0); Monocytes # 0.9 K/mcL (0.0-1.3); Monocytes % 10.1 %; Neutrophils # 6.1 K/mcL (1.6-8.9); Platelet Count 126 K/mcL (140-400); Red Blood Count 3.92 M/mcL (4.19-5.50); Red Cell Distribution Width 14.1 % (11.5-14.5)
--- NOTE | 2018-12-17 11:43 | Anesthesia Evaluation Post Op ---
Date of Encounter: 12/17/18 Time of Encounter: 10:30 - Vital Signs Vital Signs: Vital Signs/O2 Sat/Glucose, Most Current Temp Pulse Resp BP Pulse Ox 12/17/18 08:13 97.6 F 74 18 130/73 100 12/17/18 07:45 95 - Lungs Lungs: Clear Ascult./Percussion - Airway Airway: Non-obstructed - Cardiovascular Baseline Rhythm - Mental Status Mental Status: Alert & Oriented, Answers Appropriately - Pain Pain Scale: 0 - Nausea Vomiting Nausea Vomiting: Not Present - Hydration Hydration: NPO - Discharge PostOp Status: Transfer Patient to floor
--- NOTE | 2018-12-17 12:11 | Cardiology Consult Note ---
<Alejandro,Casey R - Last Filed: 12/17/18 12:32> Date of Encounter: 12/17/18 Time of Encounter: 12:08 Assessment and Plan (1) NSVT (nonsustained ventricular tachycardia) Current Visit: Yes Status: Acute Consulted for runs of VT. Mag 1.2, given replacement and now 1.5. Will replace. Keep K >4 and Mag >2. Pt was moved to and started on amio gtt, since stopped. Unable to view previous unit telemetry to confirm VT. No strips. There is an ECG with 3 beat run. Pt has known CMP with ICD in place. Device interrogated. No VT noted on check, but they state rate would have had to have been >180bpm to be detected. Continue BB and Sotalol. Per pt, had PVC ablation at [facility] 02/2018. Request records. Continue telemetry. (2) Cardiomyopathy Current Visit: Yes Status: Acute Known CMP s/p ICD. Per pt and , last TTE at [facility] EF was 35%, but has been as low as 15-20%. TTE in 2015 at [facility] EF 35-40%. Will recheck. Continue BB, ARB, Aldactone. Appears euvolemic on exam. Qualifiers: Cardiomyopathy type: unspecified Qualified Code(s): I42.9 - Cardiomyopathy, unspecified (3) CAD (coronary artery disease) Current Visit: Yes Status: Acute LHC 07/2017 with borderline 60-70% RCA lesion. No intervention. Pt reports LHC at [facility] in 2018 without intervention. Continue ASA, Statin, BB. Request records. Qualifiers: Coronary Disease-Associated Artery/Lesion type: [place]reafski artery [place] vs. transplanted heart: andreafski heart Associated angina: angina presence unspecified Qualified Code(s): I25.10 - Atherosclerotic heart disease of andreafski coronary artery without angina pectoris (4) BRBPR (bright red blood per rectum) Current Visit: Yes Status: Acute Presented with BRBPR. HGB 15.2 on presentation, dropped to 11.7. Hemoccult positive. Seen by surgery--s/p EGD, colonoscopy; gastritis and small gastric ulcers, no signs of bleedings; colonscopy demonstrated colon with bloody stool. No source of bleeding; believe it is coming from the small intestine They recommended consult GI for possible pill endoscopy vs repeat scope with intubation of terminal ileum and push endoscopy. Coumadin currently on hold. (5) Paroxysmal atrial fibrillation Current Visit: No Status: Chronic Known hx of PAF. Currently on Sotalol 120mg daily. Pt states he was previously on BID dosing and it was changed by a provider to daily. Discussed and reviewed with Dr. Javier, change to 80mg BID. Will request [facility] records. Currently SR, paced. Device check noted A-Fib vs SVT episodes 12/14 and 12/15. Continue tele. EKG QT/QTc 440/480ms. Obtain daily ECGs. Was anticoagulated on Coumadin, INR 1.4. Currently held given BRBPR. Discussion w patient/family: The assessment and plan as outlined above was discussed with the patient and/or family members who expressed understanding and agreement. All questions were answered. Thank you for involving us in the care of your patient. Please call with any questions. I will discuss all the above with Dr. Javier and make changes as necessary. History of Present Illness Consult date: 12/17/18 Requesting physician: Argelia Mccarty Consult reason: NSVT History of present illness: Mr. 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 Patient states his pain is mild, and improved with laxatives that made him have BM. However, the BM had a very large amount of blood per his and family's report. He is on warfarin for his A-Fib. He's had GI bleeds before, with most recent EGD here in 08/2018, and last colonoscopy over at [facility] was 1 month ago with no abnormalities/interventions at that time. He denies any dizziness or confusion, N/V, dysuria, edema, CP, or SOB. He was transferred to this facility due to no GI coverage at the [facility]. He does report a chest pain episode 2 weeks ago that was midsternal and sharp, l asted days. He was seen at [facility] and d/c'd home. Cardiology was consulted due to NSVT being seen on monitor and pt was started on amiodarone gtt, now off. Prior CV testing: TTE 02/10/16: LVEF 35-40%. Normal LV chamber size, wall thickness and function. Mild LVDD. Normal RV structure and function. No evidence of pulmonary hypertension. No significant valvular dysfunction. [facility] 04/25/17: There is borderline severe one vessel coronary artery disease - RCA. There is severe LV Dysfunction EF 20% Past Med Surg Social Fam HX - Past Medical History Medical history: aortic aneurysm, atrial fibrillation, cancer, coronary artery disease, renal disease, other Additional medical history: lower intestine cancer-Whipple procedure for Psychiatric history: no psych history - Past Surgical History Surgical History: cancer surgery, cataract, orthopedic, other, other Additional surgical history: LHC,AAA repair, rt elbow,whipple, defib - Social History Smoking Status: Former smoker Smokeless Tobacco Status: No Alcohol use: none Drug use: none - Family History Father Living Status: Age at : 73 Cause of : Aortic aneurysm Sister Adopted: No Living Status: Still Living Age at : 61 Cause of : Lung cancer Hx Family Cardiac Disorders: No Hx Family Respiratory Disorders: No Hx Family Cancer: Yes Hx Family Endocrine Disorder: Yes Hx Family Neuromuscular Disorders: No Hx Family Neurologic Disorders: No Hx Family HEENT Disorders: No Hx Family Autoimmune Disorders: No Medications and Allergies Nitroglycerin [Nitrostat] 0.4 mg SL Q5M PRN 10/27/15 [History] Warfarin [Coumadin] 2.5 mg PO MOWEFR 01/26/16 [History] Pantoprazole Sodium 40 mg PO DAILY 06/08/16 [History] Aspirin [Lo-Dose Aspirin EC] 81 mg PO DAILY 04/25/17 [History] Warfarin [Coumadin] 5 mg PO SUTUTHSA 04/27/17 [History] Atorvastatin [Lipitor] 80 mg PO HS 08/11/17 [History] Losartan Potassium [Cozaar] 25 mg PO DAILY 08/11/17 [History] Magnesium Oxide [Magnesium] 400 mg PO DAILY 11/10/17 [History] Sotalol HCl [Betapace] 120 mg PO DAILY 05/11/18 [History] Spironolactone [Aldactone] 25 mg PO DAILY 05/11/18 [History] Tiotropium [Spiriva] 18 mcg IH 0700 05/11/18 [History] Lactobacillus Acidophilus [Acidophilus Lactobacilli] 1 tab PO BID 12/17/18 [History] Levalbuterol [Xopenex INH] 2 puff IH Q6H PRN 12/17/18 [History] Loratadine [Allergy Relief] 10 mg PO DAILY 12/17/18 [History] Metoprolol Succinate [Toprol Xl] 25 mg PO DAILY 12/17/18 [History] Moxifloxacin OPTH Drops [Vigamox] 1 drop BOTH EYES TID PRN 12/17/18 [History] Allergy/AdvReac Type Severity Reaction Status Date / Time oxycodone [Oxycodone] AdvReac Hallucinati Verified 12/16/18 04:49 ng All Systems Review: The remainder of the systems were reviewed and are negative - Cardiovascular Cardiovascular: as per HPI - Gastrointestinal Gastrointestinal: abdominal pain Physical Examination Vital Signs, Last 4 Hours Temp Pulse Resp BP Pulse Ox 12/17/18 11:54 97.5 F L 70 18 103/69 97 12/17/18 08:13 97.6 F 74 18 130/73 100 Vital Signs Temp Pulse Resp BP Pulse Ox 12/17/18 11:54 97.5 F L 70 18 103/69 97 12/17/18 09:35 72 20 120/77 98 12/17/18 08:13 97.6 F 74 18 130/73 100 12/17/18 07:45 95 12/17/18 07:39 70 18 99 12/17/18 07:22 97.7 F 70 18 118/71 97 12/17/18 07:00 71 18 118/71 95 12/17/18 06:00 68 95/67 12/17/18 05:00 71 106/65 12/17/18 04:03 74 95/66 12/17/18 03:34 97.7 F 77 19 135/89 97 12/16/18 22:48 98.0 F 70 18 105/69 96 12/16/18 18:51 97.4 F L 70 16 127/78 97 12/16/18 15:40 98.1 F 70 18 119/77 96 Intake and Output 12/16/18 12/17/18 12/17/18 23:59 07:59 15:59 Intake Total 240 / 240 100 / 100 100 / 100 Output Total 250 / 250 Balance 240 / 240 100 / 100 -150 / -150 Intake: IV Fluids 100 / 100 Amiodarone Premix 150mg/100mL 100 / 100 150 mg In 100 ml @ 300 mls/hr IVPB ONCE ONE Rx#:[id number] Oral 240 / 240 100 / 100 Output: Urine 250 / 250 Other: Stool Size Moderate Stool Consistency soft Stool Color Brown # Voids 1 # Bowel Movements 1 Weight 58.1 kg Patient Weight 12/17/18 23:59 Weight 58.1 kg General: Conversant, No Apparent Distress HEENT: Atraumatic, Normocephaly, Mucus Membranes Moist Neck: Normal carotid pulses Cardiac: Reg Rate and Rhythm, Normal S1 and S2, No Murmur Lungs: Normal Breath Sounds, No Wheeze, Rales, Rhonchi Neuro: Alert and responsive, No focal deficits noted Abdomen: Soft, Non-Tender Skin: No rashes noted on visualized skin Musculoskeletal: No Chest Wall Tenderness Extremities: No Clubbing, No Cyanosis, No Edema, Normal Pulses Results 12/17/18 10:04 12/17/18 10:04 Lab Results 12/17/18 12/17/18 12/17/18 02:01 02:01 10:04 WBC 10.0 Hgb 12.2 L D Hct 37.6 Plt Count 110 L Sodium 137 137 Potassium 4.2 4.1 Chloride 104 106 Carbon Dioxide 23 25 BUN 21 16 Creatinine 0.69 L 0.68 L Glucose 86 114 H Calcium 8.5 L 8.3 L Magnesium 1.2 L 1.5 L Troponin I < 0.03 12/17/18 10:04 WBC 8.4 Hgb 11.7 L Hct 35.6 L Plt Count 126 L Sodium Potassium Chloride Carbon Dioxide BUN Creatinine Glucose Calcium Magnesium Troponin I Short CBC 12/17/18 12/17/18 Range/Units 10:04 02:01 WBC 8.4 10.0 (4.3-11.1) K/mcL Hgb 11.7 L 12.2 L D (12.9-16.9) g/dL Hct 35.6 L 37.6 (37.5-50.1) % Plt Count 126 L 110 L (140-400) K/mcL Neutrophils # 6.1 7.1 (1.6-8.9) K/mcL BMP 12/17/18 12/17/18 Range/Units 10:04 02:01 Sodium 137 137 (136-145) mEq/L Potassium 4.1 4.2 (3.5-5.1) mEq/L Chloride 106 104 (98-107) mEq/L Carbon Dioxide 25 23 (23-29) mEq/L BUN 16 21 (8-23) mg/dL Creatinine 0.68 L 0.69 L (0.70-1.30) mg/dL Glucose 114 H 86 (70-105) mg/dL Calcium 8.3 L 8.5 L (8.6-10.3) mg/dL Cardiac Enzymes 12/17/18 Range/Units 02:01 Troponin I < 0.03 (< 0.04) ng/mL Impressions Abdomen/Pelvis CT 12/16/18 18:30 IMPRESSION: 1. No acute process in the abdomen or pelvis. 2. Postoperative changes of Whipple procedure. 3. Postoperative changes of aorto bi-iliac endograft placement, with stable size of the excluded aneurysm sac. Aneurysmal dilation of the bilateral common iliac arteries and right internal iliac artery is also stable. 4. Moderate stool and air throughout the colon and rectum. D/ / John Vargas MD / John Vargas MD Interpreting Provider: John Vargas MD Active Medications Acetaminophen (Tylenol) 650 mg PO Q6HR PRN PRN Reason: Mild Pain/Fever Stop: 06/17/19 09:01 Albuterol Sulfate (Accuneb) 0.63 mg IH BID PRN PRN Reason: Dyspnea Stop: 06/17/19 09:15 Aspirin (Aspirin Ec) 81 mg PO DAILY [facility] Stop: 06/18/19 09:01 Last Admin: 12/17/18 10:41 Dose: 81 mg Atorvastatin Calcium (Lipitor) 80 mg PO HS [facility] Stop: 06/17/19 21:01 Losartan Potassium (Cozaar) 25 mg PO DAILY [facility] Stop: 06/18/19 09:01 Last Admin: 12/17/18 10:41 Dose: 25 mg Metoprolol Succinate (Toprol Xl) 25 mg PO DAILY [facility] Stop: 06/17/19 09:46 Last Admin: 12/17/18 10:40 Dose: 25 mg Ondansetron HCl (Zofran) 4 mg IVP Q8HR PRN PRN Reason: Nausea And Vomiting Stop: 06/17/19 09:01 Pantoprazole Sodium (Protonix) 40 mg IVP Q12HR [facility] Stop: 06/17/19 18:01 Last Admin: 12/17/18 05:14 Dose: 40 mg Sotalol HCl (Betapace) 120 mg PO Q12HR [facility] Stop: 06/18/19 08:32 Last Admin: 12/17/18 10:41 Dose: 120 mg Spironolactone (Aldactone) 25 mg PO DAILY [facility] Stop: 06/18/19 09:01 Last Admin: 12/17/18 10:40 Dose: 25 mg Tiotropium [place] (Spiriva) 18 mcg IH 0700 [facility] Stop: 06/18/19 07:01 Last Admin: 12/17/18 07:21 Dose: 18 mcg - Imaging and Cardiology Echo: report reviewed Cardiac cath: report reviewed - EKG Interpretation EKG results cardiology: personally reviewed (sinus, a-paced, on one ECG 3 beats NSVT noted), other (12 hr tele AVG HR 71, SR, a-paced) Consult Discharge Plan - Plan Referrals: NONE,PCP [Primary Care Provider] - <Cordell Javier - Last Filed: 12/17/18 16:22> Date of Encounter: 12/17/18 - Attending Attestation I have personally performed a face to face evaluation on this patient. I have reviewed and agree with the care plan. History and Exam by me shows: CC: Abdominal pain HPI: Pt presented to [facility] with complaint of bright red rectal bleeding, on warfarin, transferred to [place], [facility], bleeding now controlled after evaluation by gen surg, no source determined, GI eval in progress for consideration of capsule endoscopy. Pt monitored on tele, noted run of Vtach on tele, asymptomatic. Pt has extensive hx of arrhythmia, PAF, has AICD for ischemic cardiomyopathy, on Sotalol for rate control when pt in A fib, with recent change to 120 mg once a day in AM. Also has hx CAD, moderate non obstructive CAD at left heart cath at [facility] in 2018, has 70% mid RCA lesion, has not undergone revascularization. He also reports history of non ischemic cardiomyopathy, EF 30 - 35% at most recent echo at [facility], as indication for AICD. Pt is now pain free, resting comfortably, in no apparent distress . ROS: reviewed PMH: reviewed Labs, xrays, EKGS reviewed PE: pt seen and examined, agree with findings as documented. Imp/Plan; 1. NSVT reported on tele, no strips available, pacer interrogation does not demonstrate NSVT. Pt was on sotalol q d, will switch to 80 mg bid for better 24 hour coverage. Amiodarone is off, will continue to follow. 2. Non - ischemic cardiomyopathy, with AICD in place, last EF 35%, will repeat echo to review. 3. GI bleed, source undetermined, still undergoing evaluation. Continue to monitor heart rate response to BID sotalol, pt is off warfarin until source of bleeding can be determined. Assessment and Plan Discussion w patient/family: The assessment and plan as outlined above was discussed with the patient and/or family members who expressed understanding and agreement. All questions were answered. Thank you for involving us in the care of your patient. Please call with any questions. History of Present Illness History of present illness: Mr. Castillo is a 73 year old male All Systems Review: The remainder of the systems were reviewed and are negative Results 12/17/18 10:04 12/17/18 10:04 Lab Results 12/17/18 12/17/18 12/17/18 02:01 02:01 10:04 WBC 10.0 Hgb 12.2 L D Hct 37.6 Plt Count 110 L Sodium 137 137 Potassium 4.2 4.1 Chloride 104 106 Carbon Dioxide 23 25 BUN 21 16 Creatinine 0.69 L 0.68 L Glucose 86 114 H Calcium 8.5 L 8.3 L Magnesium 1.2 L 1.5 L Troponin I < 0.03 12/17/18 10:04 WBC 8.4 Hgb 11.7 L Hct 35.6 L Plt Count 126 L Sodium Potassium Chloride Carbon Dioxide BUN Creatinine Glucose Calcium Magnesium Troponin I
--- NOTE | 2018-12-17 14:29 | Internal Med Progress Note ---
Hospitalist Progress Note - Encounter Date of Encounter: 12/17/18 Time of Encounter: 11:00 - Subjective Interval History: Patient underwent upper GI endoscopy and colonoscopy today. Doing well postprocedure. Denies any chest pain or palpitations. No new episodes of hematemesis or melena today so far. He did have episodes of nonsustained tachycardia overnight. He was placed on amiodarone drip which has since been held. - Exam Vitals: Temp Pulse Resp BP Pulse Ox 97.5 F L 70 18 103/69 97 12/17/18 11:54 12/17/18 11:54 12/17/18 11:54 12/17/18 11:54 12/17/18 11:54 Exam: General: Patient is alert, no acute distress, oriented x 3 ENT: Mucous membranes moist Respiratory: Good respiratory effort. Normal breath sounds. No wheezing or crackles. Cardiovascular: Regular rate and rhythm. s1 and s2 normal No clicks, rubs, gallops, or murmurs. No pedal edema Abdomen: Abdomen is soft, nontender. Bowel sounds are present Musculoskeletal: Spontaneously moving all extremities Skin: warm, dry, intact. Neuro: Alert oriented x 3 normal cranial nerves, no focal deficits - Assessment and Plan (1) Abdominal pain Current Visit: Yes Status: Acute Assessment and Plan: Now improved. We will start patient on diet. Upper GI endoscopy did show gastritis and nonbleeding gastric ulcer. Patient has been placed on PPI and Carafate. (2) BRBPR (bright red blood per rectum) Current Visit: Yes Status: Acute Assessment and Plan: Etiology uncertain. No active bleeding noted on endoscopy. Will monitor blood counts. If patient continues to have bleeding, will consult GI for possible push enteroscopy. (3) Cardiomyopathy Current Visit: Yes Status: Acute Assessment and Plan: s/p AICD. Currently euvolemic. (4) NSVT (nonsustained ventricular tachycardia) Current Visit: Yes Status: Acute Assessment and Plan: Cardiology consulted. Sotalol switched to 80 mg twice a day. We will continue to monitor with telemetry. (5) Paroxysmal atrial fibrillation Current Visit: Yes Status: Chronic Assessment and Plan: rate controlled. Anticoagulation held due to GI bleed. (6) Congestive heart failure Current Visit: Yes Status: Chronic Assessment and Plan: Patient with history of cardiomyopathy and congestive heart failure. Continue home medications. Currently euvolemic. - Time Spent with Patient Total time spent is greater than 50% in coordination of care (as documented) at patient's floor/unit and/or counseling patient: Internal Medicine: Result - Labs CBC & Chem 7: 12/17/18 10:04 12/17/18 10:04 Labs: Short CBC 12/17/18 12/17/18 Range/Units 02:01 10:04 WBC 10.0 8.4 (4.3-11.1) K/mcL Hgb 12.2 L D 11.7 L (12.9-16.9) g/dL Hct 37.6 35.6 L (37.5-50.1) % Plt Count 110 L 126 L (140-400) K/mcL Neutrophils # 7.1 6.1 (1.6-8.9) K/mcL BMP 12/17/18 12/17/18 02:01 10:04 Sodium 137 137 Potassium 4.2 4.1 Chloride 104 106 Carbon Dioxide 23 25 BUN 21 16 Creatinine 0.69 L 0.68 L Glucose 86 114 H Calcium 8.5 L 8.3 L Cardiac Enzymes 12/17/18 Range/Units 02:01 Troponin I < 0.03 (< 0.04) ng/mL - ABG Interpretation ABG results: PT/INR, D-dimer PT 15.2 Seconds (9.4-12.1) H 12/16/18 05:23 - Impressions Impressions Abdomen/Pelvis CT 12/16/18 18:30 IMPRESSION: 1. No acute process in the abdomen or pelvis. 2. Postoperative changes of Whipple procedure. 3. Postoperative changes of aorto bi-iliac endograft placement, with stable size of the excluded aneurysm sac. Aneurysmal dilation of the bilateral common iliac arteries and right internal iliac artery is also stable. 4. Moderate stool and air throughout the colon and rectum. D/ / John Vargas MD / John Vargas MD Interpreting Provider: John Vargas MD - VTE Reasons for not Prescribing Prophylaxis: Medical contraindication Consult Discharge Plan - Plan Referrals: NONE,PCP [Primary Care Provider] - (1) Abdominal pain Qualifiers: Abdominal location: lower abdomen, unspecified Qualified Code(s): R10.30 - Lower abdominal pain, unspecified (3) Cardiomyopathy Qualifiers: Cardiomyopathy type: unspecified Qualified Code(s): I42.9 - Cardiomyopathy, unspecified (6) Congestive heart failure Qualifiers: Heart failure type: systolic Heart failure chronicity: chronic Qualified Code(s): I50.22 - Chronic systolic (congestive) heart failure
[2018-12-17] MEDS ORDERED: Moxifloxacin OPTH Drops 3 ML BOTTLE BOTH EYES PRN (16:35)
[2018-12-17] MEDS: Sucralfate 1 GM TABLET PO SCH ×2 (18:05→20:34)
[2018-12-17] MEDS: Lactobacillus 1 EACH CAP.SPRINK PO SCH (20:34)
[2018-12-18] MEDS: Pantoprazole 40 MG VIAL IVP SCH (04:59)
[2018-12-18 05:43] LABS: Basophils % 0.4 %; Eosinophils # 0.4 K/mcL (0.0-0.6); Eosinophils % 4.8 %; Hemoglobin 10.9 g/dL (12.9-16.9); Immature Granulocytes % 0.2 % (0-4); Lymphocytes # 1.4 K/mcL (0.6-4.6); Mean Corpuscular Hemoglobin 30.4 pg (28.0-33.3); Mean Corpuscular Volume 91.9 fL (83.0-100.0); Mean Platelet Volume 10.4 fL (9.4-12.4); Monocytes # 0.9 K/mcL (0.0-1.3); Monocytes % 9.8 %; Neutrophils # 6.1 K/mcL (1.6-8.9); Platelet Count 130 K/mcL (140-400); Red Blood Count 3.59 M/mcL (4.19-5.50); Red Cell Distribution Width 13.9 % (11.5-14.5); Segmented Neutrophils % 68.8 %
[2018-12-18 06:04] LABS: BUN/Creatinine Ratio 19 (6-26); Blood Urea Nitrogen 14 mg/dL (8-23); Calcium 8.5 mg/dL (8.6-10.3); Carbon Dioxide 27 mEq/L (23-29); Chloride 106 mEq/L (98-107); Glucose 100 mg/dL (70-105); Osmolality,Calculated 289 (280-300); Potassium 4.2 mEq/L (3.5-5.1); Sodium 139 mEq/L (136-145); eGFR For Non-African Americans > 60 (> 60)
[2018-12-18] MEDS: Tiotropium 18 MCG inhalation IH SCH (07:36)
--- NOTE | 2018-12-18 07:41 | Event Note ---
Date of Encounter: 12/18/18 Time of Encounter: 07:37 No surgical intervention indicated. Surgery signing off as ok to dc when primary service ready. Will followup in Dr Hung in clinic in 1-2 weeks.
[2018-12-18] MEDS: Loratadine 10 MG TABLET PO SCH (08:29)
[2018-12-18] MEDS: Sucralfate 1 GM TABLET PO SCH ×4 (08:29→20:33)
[2018-12-18] MEDS: Lactobacillus 1 EACH CAP.SPRINK PO SCH ×2 (08:29→20:33)
[2018-12-18] MEDS: Spironolactone 25 MG TABLET PO SCH (08:29)
[2018-12-18] MEDS: Aspirin Enteric Coated 81 MG Tablet PO SCH (08:29)
[2018-12-18] MEDS: Metoprolol XL (24 HR) Succ 25 MG TAB.ER.24H PO SCH (08:29)
--- NOTE | 2018-12-18 09:03 | Internal Med Progress Note ---
<Argelia Mccarty - Last Filed: 12/18/18 13:04> Hospitalist Progress Note - Encounter Date of Encounter: 12/18/18 Time of Encounter: 10:55 - Exam Vitals: Temp Pulse Resp BP Pulse Ox 98.4 F 70 16 101/66 95 12/18/18 11:17 12/18/18 11:17 12/18/18 11:17 12/18/18 11:17 12/18/18 11:17 - Assessment and Plan (1) Abdominal pain Current Visit: Yes Status: Acute (2) BRBPR (bright red blood per rectum) Current Visit: Yes Status: Acute (3) Cardiomyopathy Current Visit: Yes Status: Acute (4) NSVT (nonsustained ventricular tachycardia) Current Visit: Yes Status: Acute (5) Paroxysmal atrial fibrillation Current Visit: Yes Status: Chronic (6) Congestive heart failure Current Visit: Yes Status: Chronic - Time Spent with Patient Total time spent is greater than 50% in coordination of care (as documented) at patient's floor/unit and/or counseling patient: Internal Medicine: Result - Labs CBC & Chem 7: 12/18/18 04:57 12/18/18 04:57 Labs: Short CBC 12/18/18 Range/Units 04:57 WBC 8.9 (4.3-11.1) K/mcL Hgb 10.9 L (12.9-16.9) g/dL Hct 33.0 L (37.5-50.1) % Plt Count 130 L (140-400) K/mcL Neutrophils # 6.1 (1.6-8.9) K/mcL BMP 12/18/18 04:57 Sodium 139 Potassium 4.2 Chloride 106 Carbon Dioxide 27 BUN 14 Creatinine 0.72 Glucose 100 Calcium 8.5 L - ABG Interpretation ABG results: PT/INR, D-dimer PT 15.2 Seconds (9.4-12.1) H 12/16/18 05:23 - Impressions Impressions Echocardiogram 12/17/18 12:39 Impressions: LVEF 30-35%. Indeterminate diastolic function. Normal right ventricular structure and function. Mild mitral regurgitation. Mild tricuspid regurgitation. No evidence of pulmonary hypertension. Left Ventricular Wall Motion: Rest Echo Findings The apex, apical inferior, mid inferior, basal inferior, apical anterior, mid anterior, basal anterior, apical septal, mid inferior septal, basal inferior septal, apical lateral, mid anterior lateral, basal anterior lateral, mid anterior septal, mid inferior lateral, basal anterior septal and basal inferior lateral shore were hypokinetic. Findings: Study Quality * Technically sub-optimal due to poor echocardiographic windows. ECG Findings * Paced rhythm. Right Ventricle * Normal right ventricular structure and function. Device lead * A device lead was visualized in the right atrium and right ventricle. Left Ventricle * Atypical septal motion consistent with paced rhythm. * LVEF 30-35%. * Mildly dilated left ventricle. * Indeterminate diastolic function. Left Atrium * Normal left atrial size. Right Atrium * Normal right atrial size. Interatrial Septum * Interatrial septum not well evaluated. Aortic Valve * Mildly sclerotic aortic valve leaflets. * No aortic regurgitation. * No aortic stenosis. Mitral Valve * Normal mitral valve structure. * No mitral stenosis. * Mild mitral regurgitation. Tricuspid Valve * Mild tricuspid regurgitation. * No evidence of pulmonary hypertension. * No tricuspid stenosis. * Normal tricuspid valve structure. Pulmonic Valve * Pulmonic valve not well visualized. Aorta * Normally sized aortic root. Pericardium * The pericardium appears normal. IVC * Normal IVC dimensions and inspiratory collapse. Pulmonary Artery * Pulmonary artery not well visualized. Consult Discharge Plan - Plan [facility]errals: [facility] - 12/28/18 11:00 am (eris team) - Attending Attestation I saw evaluated and examined this patient and my medical decision-making was reviewed with the Resident Physician, Lance Dan. I agree with the documented findings, disposition and treatment plan as described except to any changes set forth below. We independently had [id number] contact with the patient. Issue lying down in bed. Comfortable. He has not had any more blood in stools since yesterday morning. He is being kept nothing by mouth in anticipation for push enteroscopy scheduled for today. No nausea or vomiting. No hematemesis. No palpitations. No dizziness or lightheadedness. General: Patient is alert, no acute distress, oriented x 3 Respiratory: Good respiratory effort. Normal breath sounds. No wheezing or crackles. Cardiovascular: Regular rate and rhythm. s1 and s2 normal No clicks, rubs, gallops, or murmurs. No pedal edema Abdomen: Abdomen is soft, nontender. Bowel sounds are present Musculoskeletal: Spontaneously moving all extremities Skin: warm, dry, intact. Lower GI bleed: Etiology uncertain. Colonoscopy did not show any active bleeding. Upper GI endoscopy did show nonbleeding gastric ulcer. Plan for push enteroscopy today. Continue PPI and Carafate Anemia: Hemoglobin 10.9 today. Slightly decreased compared to yesterday. Continue to monitor. No indication for blood transfusion at this time. Nonsustained V. tach: Cardiology consult appreciated. Echocardiogram shows EF of 30-35% which is his baseline. Tolerating sotalol 80 mg twice daily. Will monitor QT with EKGs. Cardiomyopathy and chronic systolic congestive heart failure: Patient is currently euvolemic. Continue home medications. Paroxysmal atrial fibrillation: Continue sotalol. Rate controlled. Anticoagulation held due to GI bleed. DVT prophylaxis with SCDs only due to GI bleed <Lance Dan - Last Filed: 12/18/18 14:14> Hospitalist Progress Note - Encounter Date of Encounter: 12/18/18 - Subjective Interval History: Patient is sitting in bed without any complaints. He reports he had some blood in stool yesterday however he has not had any additional bowel movements since yesterday. He denies abdominal pain, nausea, vomiting, diarrhea. - Exam Vitals: Temp Pulse Resp BP Pulse Ox 97.3 F L 66 18 97/63 95 12/18/18 07:25 12/18/18 07:25 12/18/18 07:37 12/18/18 07:25 12/18/18 07:37 Exam: General: pleasant, without distress Cardiovascualr: Regular rate and rhythm with no murmur, absent gallops or rubs, absent pedal edema, radial pulses 2 out of 4 Lungs: Clear to auscultation bilaterally, not in respiratory distress Abdomen: Soft nontender, nondistended positive bowel sounds Skin: warm and dry, absent rash, absent open wounds and nodules MSK: absent clubbing, cyanosis, joints without swelling Neuro: Cranial nerves II through XII intact, UE and LE sensation equal bilaterally, UE and LEstrength 5/5, alert oriented 3, Psych: good insight and judgment - Assessment and Plan (1) GI bleed Current Visit: Yes Status: Acute Assessment and Plan: Patient presented with bright red blood per rectum His hemoglobin on presentation was 15 but has dropped to 11.7 Initially he was found to be constipated at [facility] which improved with laxatives however he had a large bowel movement with blood Patient is on warfarin for atrial fibrillation which is on hold he underwent colonoscopy and EGD over the weekend which did not show any active signs of bleeding but showed erythematous mucosa in the anterior wall of the stomach and greater curvature, gastritis, nonbleeding gastric ulcer with no stigmata of bleeding Gastroenterology was consulted today and he underwent push enteroscopy which showed diffuse mild inflammation of of the stomach, and normal portion of the jejunum that was examined. We will continue Protonix, Carafate trend hemoglobin overnight and likely patient will be discharged with a capsule endoscopy with follow-up GI. 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 Boyle and was last seen in September 2018 and has not had cancer recurrence. (3) Unintentional weight loss Current Visit: Yes Status: Chronic Assessment and Plan: Patient has had unintentional weight loss. Nutrition was consulted and patient will be started on ensure once he is back from push enteroscopy. Follow-up with oncology for further evaluation. (4) Cardiomyopathy Current Visit: Yes Status: Chronic Assessment and Plan: Patient has a history of ischemic cardiomyopathy Patient's last TTE at [facility] showed EF of 35% Echocardiogram on 12/17/2018 showed LVEF of 30-35%. Patient has AICD Patient is euvolemic. We will continue beta lisa, losartan, Aldactone. (5) NSVT (nonsustained ventricular tachycardia) Current Visit: Yes Status: Resolved Assessment and Plan: Patient was evaluated by cardiology who recommended continuing metoprolol and sotalol and keeping potassium level of 4 and magnesium of 2. (6) Paroxysmal atrial fibrillation Current Visit: Yes Status: Chronic Assessment and Plan: Currently patient's rate is controlled We will continue sotalol 120 mg daily as recommended by cardiology and will recheck ECG tomorrow for QTC monitoring continue metoprolol. Warfarin is on hold due to GI bleed. DVT Prophylaxis: epcd - Time Spent with Patient Total time spent is greater than 50% in coordination of care (as documented) at patient's floor/unit and/or counseling patient: Internal Medicine: Result - Labs CBC & Chem 7: 12/18/18 04:57 12/18/18 04:57 Labs: Short CBC 12/17/18 12/18/18 Range/Units 10:04 04:57 WBC 8.4 8.9 (4.3-11.1) K/mcL Hgb 11.7 L 10.9 L (12.9-16.9) g/dL Hct 35.6 L 33.0 L (37.5-50.1) % Plt Count 126 L 130 L (140-400) K/mcL Neutrophils # 6.1 6.1 (1.6-8.9) K/mcL BMP 12/17/18 12/18/18 10:04 04:57 Sodium 137 139 Potassium 4.1 4.2 Chloride 106 106 Carbon Dioxide 25 27 BUN 16 14 Creatinine 0.68 L 0.72 Glucose 114 H 100 Calcium 8.3 L 8.5 L - ABG Interpretation ABG results: PT/INR, D-dimer PT 15.2 Seconds (9.4-12.1) H 12/16/18 05:23 - Impressions Impressions Echocardiogram 12/17/18 12:39 Impressions: LVEF 30-35%. Indeterminate diastolic function. Normal right ventricular structure and function. Mild mitral regurgitation. Mild tricuspid regurgitation. No evidence of pulmonary hypertension. Left Ventricular Wall Motion: Rest Echo Findings The apex, apical inferior, mid inferior, basal inferior, apical anterior, mid anterior, basal anterior, apical septal, mid inferior septal, basal inferior septal, apical lateral, mid anterior lateral, basal anterior lateral, mid anterior septal, mid inferior lateral, basal anterior septal and basal inferior lateral shore were hypokinetic. Findings: Study Quality * Technically sub-optimal due to poor echocardiographic windows. ECG Findings * Paced rhythm. Right Ventricle * Normal right ventricular structure and function. Device lead * A device lead was visualized in the right atrium and right ventricle. Left Ventricle * Atypical septal motion consistent with paced rhythm. * LVEF 30-35%. * Mildly dilated left ventricle. * Indeterminate diastolic function. Left Atrium * Normal left atrial size. Right Atrium * Normal right atrial size. Interatrial Septum * Interatrial septum not well evaluated. Aortic Valve * Mildly sclerotic aortic valve leaflets. * No aortic regurgitation. * No aortic stenosis. Mitral Valve * Normal mitral valve structure. * No mitral stenosis. * Mild mitral regurgitation. Tricuspid Valve * Mild tricuspid regurgitation. * No evidence of pulmonary hypertension. * No tricuspid stenosis. * Normal tricuspid valve structure. Pulmonic Valve * Pulmonic valve not well visualized. Aorta * Normally sized aortic root. Pericardium * The pericardium appears normal. IVC * Normal IVC dimensions and inspiratory collapse. Pulmonary Artery * Pulmonary artery not well visualized. - VTE Reasons for not Prescribing Prophylaxis: Medical contraindication <Argelia Mccarty - Last Filed: 12/18/18 13:04> (1) Abdominal pain Qualifiers: Abdominal location: lower abdomen, unspecified Qualified Code(s): R10.30 - Lower abdominal pain, unspecified (3) Cardiomyopathy Qualifiers: Cardiomyopathy type: unspecified Qualified Code(s): I42.9 - Cardiomyopathy, unspecified (6) Congestive heart failure Qualifiers: Heart failure type: systolic Heart failure chronicity: chronic Qualified Code(s): I50.22 - Chronic systolic (congestive) heart failure <Lance Dan - Last Filed: 12/18/18 14:14> (1) GI bleed Qualifiers: GI bleed type/associated pathology: unspecified gastrointestinal hemorrhage type Qualified Code(s): K92.2 - Gastrointestinal hemorrhage, unspecified (4) Cardiomyopathy Qualifiers: Cardiomyopathy type: ischemic Qualified Code(s): I25.5 - Ischemic cardiomyopathy
[2018-12-18 09:42] LABS: Magnesium 1.6 mg/dL (1.6-2.6)
[2018-12-18] MEDS ORDERED: Lidocaine -MPF 2% 2 ML VIAL ONE (11:14)
[2018-12-18] MEDS ORDERED: Propofol 500 MG/50 ML INFUS..BTL ONE (11:14)
--- NOTE | 2018-12-18 11:35 | Cardiology Progress Note ---
Date of Encounter: 12/18/18 Time of Encounter: 11:31 Assessment and Plan (1) Paroxysmal atrial fibrillation Current Visit: Yes Status: Chronic Known hx of PAF. Home dose Sotalol 120mg daily. Pt states he was previously on BID dosing and it was changed by a provider to daily. Changed to 80mg BID evening of 12/17. Currently SR, paced. Device check noted A- Fib vs SVT episodes 12/14 and 12/15. EKG 12/17 QT/QTc 440/480ms. EKG 12/18 QT/QTc 487/507ms. QTc prolonged, >500ms. Will decrease back to pt's home dose of Sotalol 120mg daily. Recheck ECG tomorrow AM for QTc monitoring. Was anticoagulated on Coumadin, INR 1.4. Currently held given BRBPR. (2) NSVT (nonsustained ventricular tachycardia) Current Visit: Yes Status: Acute Consulted for runs of VT. Suspect secondary d/t bowel prep/electrolyte embalance. Mag 1.2, given replacement and now 1.6. Will replace. Keep K >4 and Mag >2. Pt was moved to and started on amio gtt 12/17 overnight, since stopped. Unable to view previous unit telemetry to confirm VT. No strips. There is an ECG with 3 beat run. Pt has known CMP with ICD in place. Device interrogated. No VT noted on check, but they state rate would have had to have been >180bpm to be detected. Continue BB and Sotalol. Per pt, had PVC ablation at [facility] 02/2018. Requested records. Continue telemetry. (3) Cardiomyopathy Current Visit: Yes Status: Acute Known CMP s/p ICD. Per pt and , last TTE at [facility] EF was 35%, but has been as low as 15-20%. TTE LVEF 30-35%. Normal RV structure and function. Mild MR. Mild TR. No evidence of phtn. Continue BB, ARB, Aldactone. Appears euvolemic on exam. Qualifiers: Cardiomyopathy type: unspecified Qualified Code(s): I42.9 - Cardiomyopathy, unspecified (4) CAD (coronary artery disease) Current Visit: Yes Status: Acute LHC 07/2017 with borderline 60-70% RCA lesion. No intervention. Pt reports LHC at [facility] in 2018 without intervention. Continue ASA, Statin, BB. Requested records. Qualifiers: Coronary Disease-Associated Artery/Lesion type: [place] artery [place] vs. transplanted heart: [place] heart Associated angina: angina presence unspecified Qualified Code(s): I25.10 - Atherosclerotic heart disease of [place] coronary artery without angina pectoris (5) BRBPR (bright red blood per rectum) Current Visit: Yes Status: Acute Presented with BRBPR. HGB 15.2 on presentation, dropped to 11.7. Hemoccult positive. Seen by surgery--s/p EGD, colonoscopy; gastritis and small gastric ulcers, no signs of bleedings; colonscopy demonstrated colon with bloody stool. No source of bleeding; believe it is coming from the small intestine They recommended consult GI for possible pill endoscopy vs repeat scope with intubation of terminal ileum and push endoscopy. Coumadin currently on hold. Discussion w patient/family: The assessment and plan as outlined above was discussed with the patient and/or family members who expressed understanding and agreement. All questions were answered. Thank you for involving us in the care of your patient. Please call with any questions. I will discuss all the above with Dr. Javier and make changes as necessary. Subjective Principal diagnosis: GI bleed, NSVT Interval history: No acute complaints this AM. Pt reports feeling much better. Objective Vital Signs, Last 4 Hours Temp Pulse Resp BP Pulse Ox 12/18/18 11:17 98.4 F 70 16 101/66 95 12/18/18 07:37 18 95 Vital Signs Temp Pulse Resp BP Pulse Ox 12/18/18 11:17 98.4 F 70 16 101/66 95 12/18/18 07:37 18 95 12/18/18 07:25 97.3 F L 66 18 97/63 95 12/18/18 04:09 98.6 F 72 18 110/69 94 12/17/18 23:11 98.4 F 70 14 124/80 95 12/17/18 20:38 117/76 12/17/18 19:29 97.9 F 70 22 83/57 97 12/17/18 17:50 71 18 112/71 97 12/17/18 16:57 97.9 F 70 18 105/71 97 12/17/18 15:45 71 18 98 12/17/18 13:40 72 18 96 12/17/18 11:54 97.5 F L 70 18 103/69 97 12/17/18 11:40 72 18 96 Intake and Output 12/17/18 12/18/18 12/18/18 23:59 07:59 15:59 Intake Total 240 / 240 0 / 0 Output Total 725 / 725 Balance -485 / -485 0 / 0 Intake: Oral 240 / 240 0 / 0 Output: Urine 725 / 725 Other: Meal NPO Percent of Meal Consumed 0% Weight 59.6 kg Blood Glucose* 93 95 Patient Weight 12/18/18 23:59 Weight 59.6 kg General: Conversant, No Apparent Distress HEENT: Atraumatic, Normocephaly, Mucus Membranes Moist Neck: No JVD, Normal carotid pulses Cardiac: Reg Rate and Rhythm, Normal S1 and S2, No Murmur Lungs: Normal Breath Sounds, No Wheeze, Rales, Rhonchi Neuro: Alert and responsive, No focal deficits noted Abdomen: Soft, Non-Tender Skin: No rashes noted on visualized skin Musculoskeletal: No Chest Wall Tenderness Extremities: No Clubbing, No Cyanosis, No Edema, Normal Pulses Results 12/18/18 04:57 12/18/18 04:57 Lab Results 12/18/18 12/18/18 04:57 04:57 WBC 8.9 Hgb 10.9 L Hct 33.0 L Plt Count 130 L Sodium 139 Potassium 4.2 Chloride 106 Carbon Dioxide 27 BUN 14 Creatinine 0.72 Glucose 100 Calcium 8.5 L Magnesium 1.6 Short CBC 12/18/18 Range/Units 04:57 WBC 8.9 (4.3-11.1) K/mcL Hgb 10.9 L (12.9-16.9) g/dL Hct 33.0 L (37.5-50.1) % Plt Count 130 L (140-400) K/mcL Neutrophils # 6.1 (1.6-8.9) K/mcL BMP 12/18/18 Range/Units 04:57 Sodium 139 (136-145) mEq/L Potassium 4.2 (3.5-5.1) mEq/L Chloride 106 (98-107) mEq/L Carbon Dioxide 27 (23-29) mEq/L BUN 14 (8-23) mg/dL Creatinine 0.72 (0.70-1.30) mg/dL Glucose 100 (70-105) mg/dL Calcium 8.5 L (8.6-10.3) mg/dL Impressions Echocardiogram 12/17/18 12:39 Impressions: LVEF 30-35%. Indeterminate diastolic function. Normal right ventricular structure and function. Mild mitral regurgitation. Mild tricuspid regurgitation. No evidence of pulmonary hypertension. Left Ventricular Wall Motion: Rest Echo Findings The apex, apical inferior, mid inferior, basal inferior, apical anterior, mid anterior, basal anterior, apical septal, mid inferior septal, basal inferior septal, apical lateral, mid anterior lateral, basal anterior lateral, mid anterior septal, mid inferior lateral, basal anterior septal and basal inferior lateral shore were hypokinetic. Findings: Study Quality * Technically sub-optimal due to poor echocardiographic windows. ECG Findings * Paced rhythm. Right Ventricle * Normal right ventricular structure and function. Device lead * A device lead was visualized in the right atrium and right ventricle. Left Ventricle * Atypical septal motion consistent with paced rhythm. * LVEF 30-35%. * Mildly dilated left ventricle. * Indeterminate diastolic function. Left Atrium * Normal left atrial size. Right Atrium * Normal right atrial size. Interatrial Septum * Interatrial septum not well evaluated. Aortic Valve * Mildly sclerotic aortic valve leaflets. * No aortic regurgitation. * No aortic stenosis. Mitral Valve * Normal mitral valve structure. * No mitral stenosis. * Mild mitral regurgitation. Tricuspid Valve * Mild tricuspid regurgitation. * No evidence of pulmonary hypertension. * No tricuspid stenosis. * Normal tricuspid valve structure. Pulmonic Valve * Pulmonic valve not well visualized. Aorta * Normally sized aortic root. Pericardium * The pericardium appears normal. IVC * Normal IVC dimensions and inspiratory collapse. Pulmonary Artery * Pulmonary artery not well visualized. Active Medications Acetaminophen (Tylenol) 650 mg PO Q6HR PRN PRN Reason: Mild Pain/Fever Stop: 06/17/19 09:01 Albuterol Sulfate (Accuneb) 0.63 mg IH BID PRN PRN Reason: Dyspnea Stop: 06/17/19 09:15 Aspirin (Aspirin Ec) 81 mg PO DAILY [facility] Stop: 06/18/19 09:01 Last Admin: 12/18/18 08:29 Dose: 81 mg Atorvastatin Calcium (Lipitor) 80 mg PO HS [facility] Stop: 06/17/19 21:01 Last Admin: 12/17/18 20:34 Dose: 80 mg Lactobacillus Acidophilus/Rhamnosus (Culturelle) 1 each PO BID [facility] Stop: 06/18/19 21:01 Last Admin: 12/18/18 08:29 Dose: 1 each Loratadine (Claritin) 10 mg PO DAILY [facility]; Protocol Stop: 06/19/19 09:01 Last Admin: 12/18/18 08:29 Dose: 10 mg Losartan Potassium (Cozaar) 25 mg PO DAILY [facility] Stop: 06/18/19 09:01 Last Admin: 12/18/18 08:29 Dose: Not Given Metoprolol Succinate (Toprol Xl) 25 mg PO DAILY [facility] Stop: 06/19/19 09:01 Last Admin: 12/18/18 08:29 Dose: Not Given Moxifloxacin HCl (Vigamox) 1 drop BOTH EYES TID PRN PRN Reason: Dry Eye(s) Stop: 06/18/19 16:36 Ondansetron HCl (Zofran) 4 mg IVP Q8HR PRN PRN Reason: Nausea And Vomiting Stop: 06/17/19 09:01 Pantoprazole Sodium (Protonix) 40 mg IVP Q12HR [facility] Stop: 06/17/19 18:01 Last Admin: 12/18/18 04:59 Dose: 40 mg Sotalol HCl (Betapace) 80 mg PO Q12HR [facility] Stop: 06/18/19 18:01 Last Admin: 12/18/18 05:01 Dose: 80 mg Spironolactone (Aldactone) 25 mg PO DAILY [facility] Stop: 06/18/19 09:01 Last Admin: 12/18/18 08:29 Dose: Not Given Sucralfate (Carafate) 1 gm PO QIDAC [facility] Stop: 06/18/19 16:31 Last Admin: 12/18/18 08:29 Dose: 1 gm Tiotropium [place] (Spiriva) 18 mcg IH 0700 [facility] Stop: 06/18/19 07:01 Last Admin: 12/18/18 07:36 Dose: 18 mcg - VTE Reasons for not Prescribing Prophylaxis: Medical contraindication Consult Discharge Plan - Plan Referrals: [facility] [Non-Partnered Physician] - 12/28/18 11:00 am ([facility]is team)
--- NOTE | 2018-12-18 11:59 | Gastroenterology Consult Note ---
Date of Encounter: 12/18/18 Time of Encounter: 10:10 - Assessment and plan (1) GI bleed Current Visit: Yes Status: Acute Assessment and plan: Hgb 15.2 on admission and today Hgb 10.9. Continue to monitor CBC and transfuse PRBC as needed. EGD and colonoscopy completed 12/17/[address] Hung that showed gastritis, nonbleeding gastric ulcer, and normal colonoscopy. No further episodes of bleeding noted. Plan for push enteroscopy today. Keep patient NPO. Qualifiers: GI bleed type/associated pathology: unspecified gastrointestinal hemorrhage type Qualified Code(s): K92.2 - Gastrointestinal hemorrhage, unspecified (2) Abdominal pain Current Visit: Yes Status: Acute Assessment and plan: Patient with vague lower abdominal pain on admission, now nearly resolved. Qualifiers: Abdominal location: lower abdomen, unspecified Qualified Code(s): R10.30 - Lower abdominal pain, unspecified (3) Gastric ulcer Current Visit: Yes Status: Acute Assessment and plan: Recommend PPI and Carafate. Qualifiers: Gastric ulcer chronicity: unspecified ulcer chronicity Gastric ulcer compli cation status: unspecified whether hemorrhage or perforation present Qualified Code(s): K25.9 - Gastric ulcer, unspecified as acute or chronic, without hemorrhage or perforation - Time Spent With Patient Total time spent is greater than 50% in coordination of care (as documented) at patient's floor/unit and/or counseling patient: GI History of Present Illness - Data of Consult Patient: known to practice within the last 3 years Consult date: 12/18/18 Requesting Physician: Argelia Mccarty MD - Consult Narrative Reason for consult: GI bleed History of present illness: Mr. Castillo is a 73 year old male with PMHx of CAD, ICM, HFrEF 35% s/p AICD, A- Fib on AC, cholangiocarcinoma s/p Whipple 2016 and adjuvant chemo, infrarenal AAA who presented with abdominal pain to [facility] and was transferred here for further evaluation. He reports 2-3 day of abdominal pain, decreased appetite, and 15 pound weight loss. The morning of admission, he had a large bright red bloody BM. He denies fever, chills, chest pain, nausea, vomiting. EGD and colonoscopy completed 12/17/[address] Hung that showed gastritis, nonbleeding gastric ulcer, and normal colonoscopy. Procedures: EGD 08/30/2018 Dr. Mena: Small hiatal hernia. ERCP 01/22/2016 Dr. Mena: 2 stents removed from biliary tree, biliary tree swept and choledocholithiasis found, one covered metal stent placed in the CBD. ERCP 10/25/2015 Dr. Mena: 2 temporary stent placed in CBD, biliary stricture found. ERCP 10/23/2015 Dr. Mena: Biliary stricture found was dilated, biliary system dilated, sphincterotomy performed. NSAIDs: ASA Anticoagulation: Coumadin Past Med Surg Social Fam HX - Past Medical History Medical history: aortic aneurysm, atrial fibrillation, cancer, coronary artery disease, renal disease, other Additional medical history: lower intestine cancer-Whipple procedure for Psychiatric history: no psych history - Past Surgical History Surgical History: cancer surgery, cataract, orthopedic, other, other Additional surgical history: LHC,AAA repair, rt elbow,whipple, defib - Social History Smoking Status: Former smoker Smokeless Tobacco Status: No Alcohol use: none Drug use: none - Family History Father Living Status: Age at : 73 Cause of : Aortic aneurysm Sister Adopted: No Living Status: Still Living Age at : 61 Cause of : Lung cancer Hx Family Cardiac Disorders: No Hx Family Respiratory Disorders: No Hx Family Cancer: Yes Hx Family Endocrine Disorder: Yes Hx Family Neuromuscular Disorders: No Hx Family Neurologic Disorders: No Hx Family HEENT Disorders: No Hx Family Autoimmune Disorders: No - Gastrointestinal Gastrointestinal: Present: as per HPI - Constitutional Constitutional: as per HPI - EENT Eyes: as per HPI Ears: Present: as per HPI Nose, mouth and throat: Present: as per HPI - Cardiovascular Cardiovascular ROS: Present: as per HPI - Respiratory Respiratory IM: Present: as per HPI - Genitourinary Genitourinary: Absent: change in color, Urinary frequency - Neurological ROS Neurological GI: Present: as per HPI - Hematologic/Lymphatic Hematologic/Lymphatic pediatric: Present: as per HPI - Musculoskeletal Musculoskeletal ROS GI: Present: as per HPI - Integumentary Integumentary GI: Present: as per HPI - Psychiatric ROS Psychiatric GI: Present: as per HPI - Endocrine Endocrine IM: Present: as per HPI - Constitutional Vitals: Temp Pulse Resp BP Pulse Ox 98.4 F 70 16 101/66 95 12/18/18 11:17 12/18/18 11:17 12/18/18 11:17 12/18/18 11:17 12/18/18 11:17 General appearance: Present: cooperative, A&O X 3, no acute distress, answers questions appropriately - Head Head exam: Present: atraumatic, normocephalic - Eye Eye exam: Present: normal appearance, sclera anicteric - ENT ENT exam: Present: mucous membranes dry - Neck Neck exam general surgery: Present: normal inspection, trachea midline - Respiratory Respiratory exam: Present: CTAB. Absent: rales, rhonchi, wheezes - Cardiovascular Cardiovascular exam: Present: RRR, +S1, +S2 - GI/Abdominal GI/Abdominal exam: Present: soft, no peritoneal signs. Absent: distended, firm, guarding, tenderness - Rectal Rectal exam: Present: deferred - Extremities Exam Extremities exam: Present: warm - Neurological Exam Neurological exam: Present: no focal deficits - Psychiatric Psychiatric exam: Present: normal affect, normal mood - Skin Skin exam: Present: dry, intact, normal color, warm Results - Labs CBC & Chem 7: 12/18/18 04:57 12/18/18 04:57 Labs: Last Result Calcium 8.5 mg/dL (8.6-10.3) L 12/18/18 04:57 Troponin I < 0.03 ng/mL (< 0.04) 12/17/18 02:01 Entire Visit Hgb 10.9 g/dL (12.9-16.9) L 12/18/18 04:57 Hct 33.0 % (37.5-50.1) L 12/18/18 04:57 PT 15.2 Seconds (9.4-12.1) H 12/16/18 05:23 - ABG ABG results: PT/INR, D-dimer PT 15.2 Seconds (9.4-12.1) H 12/16/18 05:23 - Impressions Impressions Echocardiogram 12/17/18 12:39 Impressions: LVEF 30-35%. Indeterminate diastolic function. Normal right ventricular structure and function. Mild mitral regurgitation. Mild tricuspid regurgitation. No evidence of pulmonary hypertension. Left Ventricular Wall Motion: Rest Echo Findings The apex, apical inferior, mid inferior, basal inferior, apical anterior, mid anterior, basal anterior, apical septal, mid inferior septal, basal inferior septal, apical lateral, mid anterior lateral, basal anterior lateral, mid anterior septal, mid inferior lateral, basal anterior septal and basal inferior lateral shore were hypokinetic. Findings: Study Quality * Technically sub-optimal due to poor echocardiographic windows. ECG Findings * Paced rhythm. Right Ventricle * Normal right ventricular structure and function. Device lead * A device lead was visualized in the right atrium and right ventricle. Left Ventricle * Atypical septal motion consistent with paced rhythm. * LVEF 30-35%. * Mildly dilated left ventricle. * Indeterminate diastolic function. Left Atrium * Normal left atrial size. Right Atrium * Normal right atrial size. Interatrial Septum * Interatrial septum not well evaluated. Aortic Valve * Mildly sclerotic aortic valve leaflets. * No aortic regurgitation. * No aortic stenosis. Mitral Valve * Normal mitral valve structure. * No mitral stenosis. * Mild mitral regurgitation. Tricuspid Valve * Mild tricuspid regurgitation. * No evidence of pulmonary hypertension. * No tricuspid stenosis. * Normal tricuspid valve structure. Pulmonic Valve * Pulmonic valve not well visualized. Aorta * Normally sized aortic root. Pericardium * The pericardium appears normal. IVC * Normal IVC dimensions and inspiratory collapse. Pulmonary Artery * Pulmonary artery not well visualized. Consult Discharge Plan - Plan Referrals: NONE,PCP [Primary Care Provider] -
--- NOTE | 2018-12-18 12:01 | Anesthesia Evaluation PreOp ---
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: Denies Any Significant HX Other Medical History: Denies Any Significant HX, Other (blood per rectum) Anesthesia History: No Prior Anesthetic Complications, Past Anesthesia Alcohol Use: none Drug use: none Medications and Allergies Nitroglycerin [Nitrostat] 0.4 mg SL Q5M PRN 10/27/15 [History] Warfarin [Coumadin] 2.5 mg PO MOWEFR 01/26/16 [History] Pantoprazole Sodium 40 mg PO DAILY 06/08/16 [History] Aspirin [Lo-Dose Aspirin EC] 81 mg PO DAILY 04/25/17 [History] Warfarin [Coumadin] 5 mg PO SUTUTHSA 04/27/17 [History] Atorvastatin [Lipitor] 80 mg PO HS 08/11/17 [History] Losartan Potassium [Cozaar] 25 mg PO DAILY 08/11/17 [History] Magnesium Oxide [Magnesium] 400 mg PO DAILY 11/10/17 [History] Sotalol HCl [Betapace] 120 mg PO DAILY 05/11/18 [History] Spironolactone [Aldactone] 25 mg PO DAILY 05/11/18 [History] Tiotropium [Spiriva] 18 mcg IH 0700 05/11/18 [History] Lactobacillus Acidophilus [Acidophilus Lactobacilli] 1 tab PO BID 12/17/18 [History] Levalbuterol [Xopenex INH] 2 puff IH Q6H PRN 12/17/18 [History] Loratadine [Allergy Relief] 10 mg PO DAILY 12/17/18 [History] Metoprolol Succinate [Toprol Xl] 25 mg PO DAILY 12/17/18 [History] Moxifloxacin OPTH Drops [Vigamox] 1 drop BOTH EYES TID PRN 12/17/18 [History] Allergy/AdvReac Type Severity Reaction Status Date / Time oxycodone [Oxycodone] AdvReac Hallucinati Verified 12/16/18 04:49 ng - Meds/Allergy Pre-op Review Medications Reviewed: Yes Allergies Reviewed: Yes Beta Blockers on Current Med List: Yes (toprol) If Beta Blockers taken, Date/Time (Last Dose taken): not given for hypotension Anesthesia Results - Labs 12/18/18 04:57 12/18/18 04:57 Laboratory Tests 12/16/18 05:23 PT 15.2 H INR 1.4 APTT 24.0 L - Imaging EKG: report reviewed Additional studies: 12/17/2018 Echo Impressions: LVEF 30-35%. Indeterminate diastolic function. Normal right ventricular structure and function. Mild mitral regurgitation. Mild tricuspid regurgitation. No evidence of pulmonary hypertension. 2017 LEFT HEART CATH Iliofemoral angiography (left) Indications: Coronary Artery Disease, CHF, Pre op clearance Impressions: There is borderline severe one vessel coronary artery disease - RCA There is severe LV Dysfunction EF 20% Patient is an acceptable CV risk for surgery without any revascularization that would change surgical risk Recommendations: Optimal medical therapy of patient's disease. Aggressive risk factor modification. LV Ventriculography Ejection Method: LV Gram Ejection Fraction: 20% Coronary Dominance: right Lesion Findings/Interventions * Left Main Coronary Artery The LMCA is angiographically free of disease. * Left Anterior Descending There is a 30% stenosis in the Proximal LAD. * Circumflex There is a 30% stenosis in the Proximal Circumflex. * Right Coronary Artery There is a 60-70% stenosis in the Mid RCA. Left iliofemoral angiogram shows 60% proximal SFA stenosis, otherwise mild disease in the external iliac, COOK DINNER and profunda Anesthesia Exam Vital Signs/O2 Sat/Glucose, Most Recent Temp Pulse Resp BP Pulse Ox 98.4 F 70 16 101/66 95 12/18/18 11:17 12/18/18 11:17 12/18/18 11:17 12/18/18 11:17 12/18/18 11:17 Blood Glucose* 95 Weight: 59 kg NPO (# of Hours): > 8 hr - HEENT Pupil (Motor): Pupils equal, EOMI Mallampati: III Teeth: Missing - MOTEL MANAGER LOC: Oriented - Cardiac Rhythm: Regular Murmur: None - Pulmonary Breath Sounds: bilateral Clear Respiratory Effort: Symmetrical Anesthesia Assess/Plan ASA Score: 4 Level of consciousness: Cooperative, Oriented Anesthetic Plan: MAC Monitoring Plan: Standard Monitors Recovery Plan: PACU
[2018-12-18] MEDS ORDERED: *HR* PHENYLEPHRINE 1,000 MCG/10 ML SYRINGE IVP ONE (12:32)
[2018-12-18] MEDS ORDERED: 0.9 % Sodium Chloride 250 ML IVC ONE (14:58)
[2018-12-18] MEDS ORDERED: 0.9 % Sodium Chloride 250 ML ONE (15:00)
--- NOTE | 2018-12-18 17:20 | Electrocardiograph Report ---
[address] [address] Test Date: 2018-12-18 Pat Name: Santosh Castillo Department: 110 Room: 2N10 Gender: M Supervisor Firearms: : 1945 Requested By: Ish Allen Order Number: [id number] Reading MD: Mer Johnson Measurements Intervals [place] Rate: 70 P: 142 NH: 245 QRS: -50 QRSD: 114 T: 33 QT: 487 QTc: 507 Interpretive Statements ELECTRONIC ATRIAL PACEMAKER POSSIBLE RIGHT VENTRICULAR CONDUCTION DELAY LEFT ANTERIOR FASCICULAR BLOCK NONSPECIFIC ST-WAVE ABNORMALITY PROLONGED QT INTERVAL Electronically Signed On 12-18-2018 17:18:47 EDT by Mer Johnson
[2018-12-19 01:41] LABS: Hematocrit 31.7 % (37.5-50.1); Hemoglobin 10.7 g/dL (12.9-16.9); Mean Corpuscular HGB Conc 33.8 g/dL (31.6-35.5); Mean Corpuscular Hemoglobin 30.1 pg (28.0-33.3); Mean Corpuscular Volume 89.3 fL (83.0-100.0); Platelet Count 138 K/mcL (140-400); Red Blood Count 3.55 M/mcL (4.19-5.50); Red Cell Distribution Width 14.1 % (11.5-14.5)
[2018-12-19 03:14] LABS: Magnesium 1.4 mg/dL (1.6-2.6)
[2018-12-19] MEDS ORDERED: Magnesium Sulfate 3 GM in 0.9 % Sodium Chloride 100 ML IVPB ONE (03:23)
[2018-12-19 04:12] LABS: Alanine Aminotransferase 32 Units/L (7-52); Albumin 2.9 g/dL (3.5-5.7); Albumin/Globulin Ratio 0.9 (1.1-2.2); Alkaline Phosphatase 181 Units/L (34-104); Aspartate Amino Transferase 33 Units/L (13-39); BUN/Creatinine Ratio 24 (6-26); Bilirubin,Total 1.1 mg/dL (0.3-1.0); Blood Urea Nitrogen 18 mg/dL (8-23); Calcium 8.1 mg/dL (8.6-10.3); Carbon Dioxide 24 mEq/L (23-29); Chloride 107 mEq/L (98-107); Globulin 3.1 g/dL (2.4-3.5); Glucose 87 mg/dL (70-105); Osmolality,Calculated 287 (280-300); Potassium 4.1 mEq/L (3.5-5.1); Sodium 138 mEq/L (136-145); eGFR For Non-African Americans > 60 (> 60)
[2018-12-19] MEDS: Metoprolol XL (24 HR) Succ 25 MG TAB.ER.24H PO SCH (05:24)
[2018-12-19 06:52] VITALS: BP 116/66
[2018-12-19] MEDS: Aspirin Enteric Coated 81 MG Tablet PO SCH (07:39)
[2018-12-19] MEDS: Loratadine 10 MG TABLET PO SCH (07:39)
[2018-12-19] MEDS: Lactobacillus 1 EACH CAP.SPRINK PO SCH (07:39)
[2018-12-19] MEDS: Sucralfate 1 GM TABLET PO SCH (07:39)
[2018-12-19] MEDS: Tiotropium 18 MCG inhalation IH SCH (08:05)
[2018-12-19] MEDS: Spironolactone 25 MG TABLET PO SCH (08:26)
[2018-12-19] MEDS ORDERED: Magnesium Oxide 400 MG TABLET PO SCH (09:00)
--- NOTE | 2018-12-19 10:03 | Cardiology Progress Note ---
Date of Encounter: 12/19/18 Time of Encounter: 10:00 Assessment and Plan (1) Paroxysmal atrial fibrillation Current Visit: Yes Status: Chronic Known hx of PAF. Home dose Sotalol 120mg daily. Pt states he was previously on BID dosing and it was changed by a provider to daily. Changed to 80mg BID evening of 12/17. QTc prolonged, so changed back to 120mg daily 12/18. QTc is now stable <500ms. Was anticoagulated on Coumadin, but stopped given BRBPR. Can reconsider starting in the future once okay with GI. High CVA risk not on AC, which pt is aware of. Continue ASA for now. Cardiology signing off. Reconsult PRN. (2) NSVT (nonsustained ventricular tachycardia) Current Visit: Yes Status: Resolved Consulted for runs of VT. Pt was moved to and started on amio gtt 12/17 overnight, since stopped. Unable to view previous unit telemetry to confirm VT. No strips. Pt has known CMP with ICD in place. Device interrogated. No VT noted on check. Concern for VT overnight 12/19. Tele reviewed. Rhythm is intermittent V-pacing, not VT. Would still recommend keeping Mag >2 and K >4 to avoid arrhythmias. Continue BB and Sotalol. Per pt, had PVC ablation at [facility] 02/2018. (3) Cardiomyopathy Current Visit: Yes Status: Chronic Known CMP s/p ICD. Per pt and , last TTE at [facility] EF was 35%, but has been as low as 15-20%. TTE LVEF 30-35%. Normal RV structure and function. Mild MR. Mild TR. No evidence of phtn. Continue BB, ARB, Aldactone. Appears euvolemic on exam. Qualifiers: Cardiomyopathy type: ischemic Qualified Code(s): I25.5 - Ischemic cardiomyopathy (4) CAD (coronary artery disease) Current Visit: Yes Status: Acute LHC 07/2017 with borderline 60-70% RCA lesion. No intervention. Pt reports LHC at [facility] in 2018 without intervention. Continue ASA, Statin, BB. Qualifiers: Coronary Disease-Associated Artery/Lesion type: gambell artery Solomon vs. transplanted heart: gambell heart Associated angina: angina presence unspecified Qualified Code(s): I25.10 - Atherosclerotic heart disease of gamb[place] coronary artery without angina pectoris (5) BRBPR (bright red blood per rectum) Current Visit: Yes Status: Acute Presented with BRBPR. HGB 15.2 on presentation, dropped to 10.7. Hemoccult positive. EGD and colonoscopy completed 12/17/[address] Hung that showed gastritis, nonbleeding gastric ulcer, and normal colonoscopy. No further episodes of bleeding noted. Push enteroscopy yesterday with diffuse inflammation. Coumadin stopped. Discussion w patient/family: The assessment and plan as outlined above was discussed with the patient and/or family members who expressed understanding and agreement. All questions were answered. Thank you for involving us in the care of your patient. Please call with any questions. I will discuss all the above with Dr. Johnson and make changes as necessary. Subjective Principal diagnosis: GI bleed, NSVT Interval history: No acute complaints this AM. Pt reports feeling much better. Objective Vital Signs, Last 4 Hours Temp Pulse Resp BP Pulse Ox 12/19/18 06:50 98.1 F 70 18 116/66 94 Vital Signs Temp Pulse Resp BP Pulse Ox 12/19/18 06:50 98.1 F 70 18 116/66 94 12/19/18 04:01 97.9 F 57 19 115/69 95 12/18/18 23:14 97.8 F 70 18 107/64 94 12/18/18 19:31 97.4 F L 70 16 111/70 94 12/18/18 16:23 98.0 F 70 16 91/60 97 12/18/18 15:28 89 93/64 12/18/18 14:56 87 94/60 12/18/18 13:54 70 18 85/69 95 12/18/18 13:19 71 18 142/71 98 12/18/18 11:17 98.4 F 70 16 101/66 95 Intake and Output 12/18/18 12/19/18 12/19/18 23:59 07:59 15:59 Intake Total 440 / 440 240 / 240 Output Total 200 / 200 580 / 580 Balance 240 / 240 -580 / -580 240 / 240 Intake: Oral 440 / 440 240 / 240 Output: Urine 200 / 200 580 / 580 Other: Meal Dinner Breakfast Percent of Meal Consumed 75% 95% # Voids 2 Weight 59.6 kg Patient Weight 12/19/18 23:59 Weight 59.6 kg General: Conversant, No Apparent Distress HEENT: Atraumatic, Normocephaly, Mucus Membranes Moist Neck: No JVD, Normal carotid pulses Cardiac: Reg Rate and Rhythm, Normal S1 and S2, No Murmur Lungs: Normal Breath Sounds, No Wheeze, Rales, Rhonchi Neuro: Alert and responsive, No focal deficits noted Abdomen: Soft, Non-Tender Skin: No rashes noted on visualized skin Musculoskeletal: No Chest Wall Tenderness Extremities: No Clubbing, No Cyanosis, No Edema, Normal Pulses Results 12/19/18 00:48 12/19/18 00:48 Lab Results 12/19/18 12/19/18 12/19/18 00:48 00:48 07:47 WBC 8.2 Hgb 10.7 L Hct 31.7 L Plt Count 138 L Sodium 138 Potassium 4.1 Chloride 107 Carbon Dioxide 24 BUN 18 Creatinine 0.76 Glucose 87 Calcium 8.1 L Magnesium 1.4 L 2.1 Total Bilirubin 1.1 H AST 33 ALT 32 Alkaline Phosphatase 181 H Short CBC 12/19/18 Range/Units 00:48 WBC 8.2 (4.3-11.1) K/mcL Hgb 10.7 L (12.9-16.9) g/dL Hct 31.7 L (37.5-50.1) % Plt Count 138 L (140-400) K/mcL BMP 12/19/18 Range/Units 00:48 Sodium 138 (136-145) mEq/L Potassium 4.1 (3.5-5.1) mEq/L Chloride 107 (98-107) mEq/L Carbon Dioxide 24 (23-29) mEq/L BUN 18 (8-23) mg/dL Creatinine 0.76 (0.70-1.30) mg/dL Glucose 87 (70-105) mg/dL Calcium 8.1 L (8.6-10.3) mg/dL Liver Function 12/19/18 Range/Units 00:48 Total Bilirubin 1.1 H (0.3-1.0) mg/dL AST 33 (13-39) Units/L ALT 32 (7-52) Units/L Alkaline Phosphatase 181 H (34-104) Units/L Albumin 2.9 L (3.5-5.7) g/dL Active Medications Acetaminophen (Tylenol) 650 mg PO Q6HR PRN PRN Reason: Mild Pain/Fever Stop: 06/17/19 09:01 Albuterol Sulfate (Accuneb) 0.63 mg IH BID PRN PRN Reason: Dyspnea Stop: 06/17/19 09:15 Aspirin (Aspirin Ec) 81 mg PO DAILY [facility] Stop: 06/18/19 09:01 Last Admin: 12/19/18 07:39 Dose: 81 mg Atorvastatin Calcium (Lipitor) 80 mg PO HS [facility] Stop: 06/17/19 21:01 Last Admin: 12/18/18 20:33 Dose: 80 mg Lactobacillus Acidophilus/Rhamnosus (Culturelle) 1 each PO BID [facility] Stop: 06/18/19 21:01 Last Admin: 12/19/18 07:39 Dose: 1 each Loratadine (Claritin) 10 mg PO DAILY [facility]; Protocol Stop: 06/19/19 09:01 Last Admin: 12/19/18 07:39 Dose: 10 mg Losartan Potassium (Cozaar) 25 mg PO DAILY [facility] Stop: 06/18/19 09:01 Last Admin: 12/18/18 08:29 Dose: Not Given Magnesium Oxide (Mag-Ox) 400 mg PO BID [facility]; Protocol Stop: 06/20/19 09:01 Last Admin: 12/19/18 08:00 Dose: 400 mg Metoprolol Succinate (Toprol Xl) 25 mg PO DAILY [facility] Stop: 06/19/19 09:01 Last Admin: 12/19/18 05:24 Dose: 25 mg Moxifloxacin HCl (Vigamox) 1 drop BOTH EYES TID PRN PRN Reason: Dry Eye(s) Stop: 06/18/19 16:36 Omeprazole (Prilosec) 40 mg PO BIDAC [facility]; Protocol Stop: 06/19/19 16:31 Last Admin: 12/19/18 07:39 Dose: 40 mg Ondansetron HCl (Zofran) 4 mg IVP Q8HR PRN PRN Reason: Nausea And Vomiting Stop: 06/17/19 09:01 Sotalol HCl (Betapace) 120 mg PO DAILY [facility] Stop: 06/20/19 09:01 Last Admin: 12/19/18 07:38 Dose: 120 mg Spironolactone (Aldactone) 25 mg PO DAILY [facility] Stop: 06/18/19 09:01 Last Admin: 12/19/18 08:26 Dose: 25 mg Sucralfate (Carafate) 1 gm PO QIDAC [facility] Stop: 06/18/19 16:31 Last Admin: 12/19/18 07:39 Dose: 1 gm Tiotropium [place] (Spiriva) 18 mcg IH 0700 [facility] Stop: 06/18/19 07:01 Last Admin: 12/19/18 08:05 Dose: Not Given - Imaging and Cardiology Echo: report reviewed - EKG Interpretation EKG results cardiology: other (12 hr tele AVG HR 71, A and V paced) - VTE Reasons for not Prescribing Prophylaxis: Medical contraindication Consult Discharge Plan - Plan Referrals: Chris Waterman MD [Partnered Physician] - (sent web request on 12-18-18 @ 3006) [facility] [Non-Partnered Physician] - 12/28/18 11:00 am (eris team)
--- NOTE | 2018-12-19 10:20 | Discharge Summary ---
<Lance Dan - Last Filed: 12/19/18 10:17> - NOTES TO OUTPATIENT PROVIDER Notes to Outpatient Provider: Patient admitted for GI bleed. Underwent EGD, colonoscopy, push enteroscopy without signs of active bleeding found. Warfarin was discontinued and the upon gastroenterology to restart this medication. Also patient has significant weight loss. Will need to follow-up with oncology for significant weight loss and may need PET scan. Orders not resulted at time of discharge: Pending orders 12/20/18 06:00 EKG [ECG 12 lead ECG] [ECG] AM 0600 Date of Encounter: 12/19/18 Time of Encounter: 10:18 - Discharge Diagnosis (1) GI bleed Priority: Primary Status: Resolved Qualifiers: GI bleed type/associated pathology: unspecified gastrointestinal hemorrhage type Qualified Code(s): K92.2 - Gastrointestinal hemorrhage, unspecified (2) History of cancer of small intestine Priority: Secondary Status: Chronic (3) Unintentional weight loss Priority: Secondary Status: Chronic (4) Cardiomyopathy Priority: Secondary Status: Chronic Qualifiers: Cardiomyopathy type: ischemic Qualified Code(s): I25.5 - Ischemic cardiomyopathy (5) NSVT (nonsustained ventricular tachycardia) Priority: Secondary Status: Resolved (6) Paroxysmal atrial fibrillation Priority: Secondary Status: Chronic Hospital course: Mr. Castillo is a 73 year old male presented with chief complaint of blood in stool. [facility], given laxatives and had a large bloody bowel movement. Hemoglobin on presentation was 15 and decreased to 10.9 and has been stable for the past 48 hours. Patient is on warfarin for atrial fibrillation which was discontinued. CT abdomen and pelvis was negative for any acute changes. Patient underwent EGD and colonoscopy by general surgery and there was no signs of active bleed but showed erythematous mucosa in the anterior wall of the stomach and greater curvature, nonbleeding gastric ulcer with no stigmata of bleeding. Gastroenterology was consulted and patient underwent push enteroscopy without any findings in the jejunum. He was started on Carafate and Protonix twice a day. Patient did not require any blood transfusions. Patient also complained of significant weight loss in the past few months. Patient has a history of extrahepatic cholangiocarcinoma and is followed by Dr. Boyle and thus far has not had recurrence of his cancer. He will need a follow-up with oncology for reevaluation of weight loss and possible PET scan. Furthermore patient had nonsustained ventricular tachycardia and cardiology was consulted. Patient has a history of ischemic cardiomyopathy with an ejection fraction of 35%. Initially patient's sotalol dose was increased by cardiology from 120 mg daily to 80 mg twice a day however repeat EKG showed increase in the QT to 500 and this dose was decreased back to 120 mg daily. Today patient's EKG shows a QTc 466. Furthermore patient's warfarin will be discontinued at discharge and he will follow up with gastroenterology before restarting this medication. - Time Spent with Patient Total time spent providing and/or coordinating discharge services: - Discharge Medications Prescriptions: New Sucralfate [Carafate] 1 gm PO QIDAC #120 tablet Continue Nitroglycerin [Nitrostat] 0.4 mg SL Q5M PRN PRN Reason: chest pain Aspirin [Lo-Dose Aspirin EC] 81 mg PO DAILY Losartan Potassium [Cozaar] 25 mg PO DAILY Atorvastatin [Lipitor] 80 mg PO HS Magnesium Oxide [Magnesium] 400 mg PO DAILY Sotalol HCl [Betapace] 120 mg PO DAILY Spironolactone [Aldactone] 25 mg PO DAILY Tiotropium [Spiriva] 18 mcg IH 0700 Lactobacillus Acidophilus [Acidophilus Lactobacilli] 1 tab PO BID Levalbuterol [Xopenex INH] 2 puff IH Q6H PRN PRN Reason: Shortness Of Breath Loratadine [Allergy Relief] 10 mg PO DAILY Metoprolol Succinate [Toprol Xl] 25 mg PO DAILY Moxifloxacin OPTH Drops [Vigamox] 1 drop BOTH EYES TID PRN PRN Reason: Dry Eye(S) Changed Pantoprazole Sodium 40 mg PO BID #60 tablet.dr Discontinued Warfarin [Coumadin] 2.5 mg PO MOWEFR Warfarin [Coumadin] 5 mg PO [facility] Home Medications: Nitroglycerin [Nitrostat] 0.4 mg SL Q5M PRN 10/27/15 [History] Aspirin [Lo-Dose Aspirin EC] 81 mg PO DAILY 04/25/17 [History] Atorvastatin [Lipitor] 80 mg PO HS 08/11/17 [History] Losartan Potassium [Cozaar] 25 mg PO DAILY 08/11/17 [History] Magnesium Oxide [Magnesium] 400 mg PO DAILY 11/10/17 [History] Sotalol HCl [Betapace] 120 mg PO DAILY 05/11/18 [History] Spironolactone [Aldactone] 25 mg PO DAILY 05/11/18 [History] Tiotropium [Spiriva] 18 mcg IH 0700 05/11/18 [History] Lactobacillus Acidophilus [Acidophilus Lactobacilli] 1 tab PO BID 12/17/18 [History] Levalbuterol [Xopenex INH] 2 puff IH Q6H PRN 12/17/18 [History] Loratadine [Allergy Relief] 10 mg PO DAILY 12/17/18 [History] Metoprolol Succinate [Toprol Xl] 25 mg PO DAILY 12/17/18 [History] Moxifloxacin OPTH Drops [Vigamox] 1 drop BOTH EYES TID PRN 12/17/18 [History] Pantoprazole Sodium 40 mg PO BID #60 tablet. 12/19/18 [Rx] Sucralfate [Carafate] 1 gm PO QIDAC #120 tablet 12/19/18 [Rx] Allergies/Adverse Reactions: Allergy/AdvReac Type Severity Reaction Status Date / Time oxycodone [Oxycodone] AdvReac Hallucinati Verified 12/16/18 04:49 ng Date of admission: 12/16/18 08:05 Primary care physician: PCP NONE Consults: 12/16/18 09:14 Consult to Surgery [CONS] Routine Consulting Provider: Renan Hung Reason for Consult: GIB Call Completed: Yes 12/16/18 12:31 Consult to Nutrition [CONS] Routine Comment: Consulting Provider: NUTRITION Reason for Dietary Consult: Other Other:: s/p Whipple, please eval and advise re nutrition as is underweight 12/17/18 01:56 Consult to Cardiology [CONS] Routine Comment: Consulting Provider: Cardiology Daisy Reason for Consult: Possible runs of vtach on tele, assymptomatic. Patient with pacemaker/defibrillator. Recent ablation completed at [facility] 3-4 months ago for "erratic" heart beat per patient. Call Completed: No 12/17/18 14:31 Consult to Gastroenterology [CONS] Routine Consulting Provider: Gastroenterology Daisy Reason for Consult: GI bleed. Possibly needs push enteroscopy Call Completed: No 12/18/18 08:54 Consult to Nurse Navigator [CONS] Routine Comment: CHF Discharging clinician: Lance Dan Anticipated date of discharge: 12/19/18 - Constitutional Vitals: Temp Pulse Resp BP Pulse Ox 98.1 F 70 18 116/66 94 12/19/18 06:50 12/19/18 06:50 12/19/18 06:50 12/19/18 06:50 12/19/18 06:50 Exam: General: pleasant, without distress Cardiovascualr: Regular rate and rhythm with no murmur, absent gallops or rubs, absent pedal edema, radial pulses 2 out of 4 Lungs: Clear to auscultation bilaterally, not in respiratory distress Abdomen: Soft nontender, nondistended positive bowel sounds Skin: warm and dry, absent rash, absent open wounds and nodules MSK: absent clubbing, cyanosis, joints without swelling Neuro: Cranial nerves II through XII intact, UE and LE sensation equal bilaterally, UE and LEstrength 5/5, alert oriented 3, Psych: good insight and judgment - Patient Status Disposition: Home, Self-Care Condition: Good Functional capacity at discharge: independent ambulation Overall status at discharge: patient is progressing back to baseline - Ambulatory Orders Ambulatory Orders: Complete Blood Count w/o Diff [HEME] Time Frame: 1 Week, Facility: [facility], Location: Lab - Discharge Instructions Follow Up With: Chris Waterman MD [Partnered Physician] - (sent web request on 12-18-18 @ 0226) [place],PCP [Non-Partnered Physician] - 12/28/18 11:00 am (eris team) Forms: ED Satisfaction Letter - Diet and Activity Activity: increase activity as tolerated Diet: advance to your usual diet - VTE Reasons for not Prescribing Prophylaxis: Medical contraindication <Argelia Mccarty - Last Filed: 12/19/18 14:06> Date of Encounter: 12/19/18 Time of Encounter: 09:50 - Discharge Diagnosis (1) Abdominal pain Status: Acute Qualifiers: Abdominal location: lower abdomen, unspecified Qualified Code(s): R10.30 - Lower abdominal pain, unspecified (2) BRBPR (bright red blood per rectum) Status: Acute (3) Cardiomyopathy Status: Chronic Qualifiers: Cardiomyopathy type: ischemic Qualified Code(s): I25.5 - Ischemic cardiomyopathy (4) NSVT (nonsustained ventricular tachycardia) Status: Resolved (5) Paroxysmal atrial fibrillation Status: Chronic (6) Congestive heart failure Status: Chronic Qualifiers: Heart failure type: systolic Heart failure chronicity: chronic Qualified Code(s): I50.22 - Chronic systolic (congestive) heart failure Hospital course: Mr. Castillo is a 73 year old male - Time Spent with Patient Total time spent providing and/or coordinating discharge services: Time spent: Less than 30 minutes (10 min) Date of admission: 12/16/18 08:05 Primary care physician: PCP NONE Consults: 12/16/18 09:14 Consult to Surgery [CONS] Routine Consulting Provider: Renan Hung Reason for Consult: GIB Call Completed: Yes 12/16/18 12:31 Consult to Nutrition [CONS] Routine Comment: Consulting Provider: NUTRITION Reason for Dietary Consult: Other Other:: s/p Whipple, please eval and advise re nutrition as is underweight 12/17/18 01:56 Consult to Cardiology [CONS] Routine Comment: Consulting Provider: Cardiology Daisy Reason for Consult: Possible runs of vtach on tele, assymptomatic. Patient with pacemaker/defibrillator. Recent ablation completed at [facility] 3-4 months ago for "erratic" heart beat per patient. Call Completed: No 12/17/18 14:31 Consult to Gastroenterology [CONS] Routine Consulting Provider: Gastroenterology Daisy Reason for Consult: GI bleed. Possibly needs push enteroscopy Call Completed: No 12/18/18 08:54 Consult to Nurse Navigator [CONS] Routine Comment: CHF - Constitutional Vitals: Temp Pulse Resp BP Pulse Ox 98.1 F 70 18 116/66 94 12/19/18 06:50 12/19/18 06:50 12/19/18 06:50 12/19/18 06:50 12/19/18 06:50 - Attending Attestation I saw evaluated and examined this patient and my medical decision-making was reviewed with the Resident Physician, Lance Dan. I agree with the documented findings, disposition and treatment plan as described except to any changes set forth below. We independently had [id number] contact with the patient. 73-year-old male patient with history of cardiomyopathy status post AICD placement, prior cholangiocarcinoma status post Whipple's procedure was hospitalized here for lower GI bleed. This had started after patient received an enema [facility] the [facility]. Patient was treated with packed units of red blood cells along with intravenous proton pump inhibitor. He then underwent upper GI endoscopy and colonoscopy which showed a nonbleeding gastric ulcer and some hemorrhoids. There was no other overt bleeding. He was then transferred to the floor and monitored closely. He did develop what appeared to be episodes of nonsustained V. tach and so was placed on amiodarone briefly. Patient is already on sotalol at home. This medication was held temporarily. Cardiology was then consulted and sotalol was resumed. Continue amiodarone was taken off. However patient's QT at interval prolonged with increased dose of sotalol. As such patient was switched back down to his usual dose of 120 mg daily sotalol. Cardiology further evaluated his telemetry and further evaluation of his AICD, no V. tach was noted. Did not recommend any changes at this time but recommend keeping electrolytes off magnesium greater than 2 and potassium greater than 4 to avoid arrhythmias. Patient did receive magnesium intravenously here. He then underwent push enteroscopy to evaluate for any small bowel bleeding. Patient did not have any bleeding up to the jejunum. GI recommends outpatient follow-up and pale endoscopy to evaluate further. At this time patient's hemoglobin levels are stable. He is clinically stable to be discharged. Patient had reported a 15 pound weight loss in the recent past. He does follow up with cancer [facility] for monitoring of his prior cholangiocarcinoma. I did discuss this with the oncology nurse practitioner and she will make arrangements for patient to have follow up sooner with further workup as needed. Clinically, he is stable to be discharged home today. On exam, patient is awake and alert. S1 and S2 are normal. Breath sounds are normal. Abdomen is soft, nontender.
--- NOTE | 2018-12-19 10:32 | Electrocardiograph Report ---
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
--- NOTE | 2018-12-20 17:21 | Electrocardiograph Report ---
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
--- NOTE | 2018-12-20 17:39 | Electrocardiograph Report ---
[address] [address] Test Date: 2018-12-17 Pat Name: Santosh Castillo Department: 113 Room: 2N04 Gender: M Director Skills: : 1945 Requested By: Devonte Bay Order Number: [id number] Reading MD: Mer Johnson Measurements Intervals [place] Rate: 82 P: 122 [place]: 230 QRS: -52 QRSD: 106 T: 28 QT: 442 QTc: 481 Interpretive Statements ELECTRONIC ATRIAL PACEMAKER POSSIBLE RIGHT VENTRICULAR CONDUCTION DELAY INFERIOR MYOCARDIAL INFARCTION, PROBABLY OLD WITH POSTERIOR EXTENSION Electronically Signed On 12-20-2018 17:37:32 EDT by Mer Johnson
== END 2018-12-19 12:51 | disposition home or self-care (01) | DRG 378 ==
LOC: EMEROOARM 04:43 → SUATTDRO 08:05 → 3BNU 08:05 → 2NNU 12-17 03:19
PROVIDERS: ADMIT Internal Medicine; ATTEND Internal Medicine

== ENCOUNTER 2019-12-11 13:01 | Inpatient (IN) ==
[2019-12-11] MEDS ORDERED: Naloxone 0.4 MG/ML INJ IVP PRN (16:31)
[2019-12-11 17:45] LABS: Basophils % 0.3 %; Eosinophils % 0.3 %; Hematocrit 31.1 % (37.5-50.1); Hemoglobin 9.8 g/dL (12.9-16.9); Immature Granulocytes % 0.3 % (0-4); Lymphocytes % 32.9 %; Mean Corpuscular HGB Conc 31.5 g/dL (31.6-35.5); Mean Corpuscular Hemoglobin 29.3 pg (28.0-33.3); Mean Corpuscular Volume 92.8 fL (83.0-100.0); Mean Platelet Volume 9.8 fL (9.4-12.4); Monocytes # 0.4 K/mcL (0.0-1.3); Monocytes % 11.4 %; Platelet Count 111 K/mcL (140-400); Red Blood Count 3.35 M/mcL (4.19-5.50); Red Cell Distribution Width 15.1 % (11.5-14.5); Segmented Neutrophils % 54.8 %; White Blood Count 3.2 K/mcL (4.3-11.1)
[2019-12-11 17:49] LABS: Lymphocytes # 1.1 K/mcL (0.6-4.6); Neutrophils # 1.8 K/mcL (1.6-8.9)
[2019-12-11] MEDS ORDERED: Warfarin perPT PO PRN (18:00)
[2019-12-11 18:16] LABS: BUN/Creatinine Ratio 22 (6-26); Blood Urea Nitrogen 12 mg/dL (8-23); Calcium 7.8 mg/dL (8.6-10.3); Carbon Dioxide 31 mEq/L (23-29); Chloride 104 mEq/L (98-107); Glucose 100 mg/dL (70-105); Magnesium 1.4 mg/dL (1.6-2.6); Osmolality,Calculated 290 (280-300); Phosphorous 1.7 mg/dL (2.7-4.5); Potassium 3.8 mEq/L (3.5-5.1); Sodium 140 mEq/L (136-145); eGFR For African Americans > 60 (> 60); eGFR For Non-African Americans > 60 (> 60)
[2019-12-11 19:09] LABS: INR 2.2; Prothrombin Time 25.1 Seconds (9.4-12.1)
[2019-12-11] MEDS: Ipratropium/Albuterol Neb 3 ML IH SCH (22:06)
[2019-12-12] MEDS: Ipratropium/Albuterol Neb 3 ML IH SCH ×4 (03:39→21:44)
[2019-12-12 04:41] LABS: INR 2.2; Prothrombin Time 25.1 Seconds (9.4-12.1)
[2019-12-12 04:48] LABS: Basophils % 0.3 %; Hematocrit 28.6 % (37.5-50.1); Immature Granulocytes % 0.3 % (0-4); Lymphocytes # 1.4 K/mcL (0.6-4.6); Lymphocytes % 35.2 %; Mean Corpuscular HGB Conc 31.5 g/dL (31.6-35.5); Mean Corpuscular Hemoglobin 28.9 pg (28.0-33.3); Mean Platelet Volume 9.5 fL (9.4-12.4); Monocytes # 0.4 K/mcL (0.0-1.3); Monocytes % 10.5 %; Neutrophils # 2.1 K/mcL (1.6-8.9); Platelet Count 100 K/mcL (140-400); Red Blood Count 3.11 M/mcL (4.19-5.50); Red Cell Distribution Width 15.2 % (11.5-14.5); Segmented Neutrophils % 52.7 %; White Blood Count 3.9 K/mcL (4.3-11.1)
[2019-12-12 04:55] LABS: BUN/Creatinine Ratio 18 (6-26); Blood Urea Nitrogen 11 mg/dL (8-23); Calcium 7.6 mg/dL (8.6-10.3); Carbon Dioxide 30 mEq/L (23-29); Chloride 104 mEq/L (98-107); Glucose 96 mg/dL (70-105); Magnesium 1.7 mg/dL (1.6-2.6); Osmolality,Calculated 287 (280-300); Phosphorous 2.4 mg/dL (2.7-4.5); Potassium 3.5 mEq/L (3.5-5.1); Sodium 139 mEq/L (136-145); eGFR For African Americans > 60 (> 60); eGFR For Non-African Americans > 60 (> 60)
[2019-12-12] MEDS: Acetaminophen 325 MG TABLET PO PRN (05:17)
[2019-12-12] MEDS ORDERED: Ondansetron ODT 4 MG TAB.RAPDIS PO PRN (07:28)
[2019-12-12] MEDS ORDERED: Piperacillin/Tazobactam 3.375 GM in 0.9 % Sodium Chloride Mini Bag 100 ML IVPB SCH ×2 (08:00)
[2019-12-12] MEDS: Aspirin Enteric Coated 81 MG Tablet PO SCH (08:39)
[2019-12-12] MEDS: Budesonide/Formoterol 160/4.5 1 PUFF INH IH SCH ×2 (11:25→21:44)
[2019-12-12] MEDS: Ampicillin/Sulbactam 1,500 MG in 0.9 % Sodium Chloride Mini Bag 100 ML IVPB SCH ×3 (13:14→23:30)
[2019-12-12] MEDS ORDERED: Potassium Chloride Elixir 20 MEQ/15 ML UDC GTUBE ONE (14:12)
[2019-12-12] MEDS ORDERED: Magnesium Oxide 400 MG TABLET PO ONE (14:15)
[2019-12-12] MEDS ORDERED: *HR* Warfarin 2.5 MG TABLET PO ONE (18:00)
[2019-12-12] MEDS: Mirtazapine 15 MG TABLET PO SCH (20:13)
[2019-12-12] MEDS: Metoprolol XL (24 HR) Succ 25 MG TAB.ER.24H PO SCH (20:13)
[2019-12-13] MEDS: Ipratropium/Albuterol Neb 3 ML IH SCH ×2 (03:23→10:38)
[2019-12-13] MEDS: Ampicillin/Sulbactam 1,500 MG in 0.9 % Sodium Chloride Mini Bag 100 ML IVPB SCH ×4 (05:56→23:19)
[2019-12-13 06:08] LABS: INR 2.1; Prothrombin Time 23.6 Seconds (9.4-12.1)
[2019-12-13] MEDS ORDERED: Tiotropium 18 MCG inhalation IH SCH (07:00)
[2019-12-13] MEDS: Metoprolol XL (24 HR) Succ 25 MG TAB.ER.24H PO SCH (09:03)
[2019-12-13] MEDS: Aspirin Enteric Coated 81 MG Tablet PO SCH (09:03)
[2019-12-13] MEDS ORDERED: Ipratropium/Albuterol Neb 3 ML IH PRN (10:40)
[2019-12-13 11:16] LABS: Hematocrit 30.3 % (37.5-50.1); Hemoglobin 9.6 g/dL (12.9-16.9); Mean Corpuscular HGB Conc 31.7 g/dL (31.6-35.5); Mean Corpuscular Hemoglobin 29.3 pg (28.0-33.3); Mean Corpuscular Volume 92.4 fL (83.0-100.0); Mean Platelet Volume 9.4 fL (9.4-12.4); Red Blood Count 3.28 M/mcL (4.19-5.50); Red Cell Distribution Width 15.3 % (11.5-14.5); White Blood Count 5.8 K/mcL (4.3-11.1)
[2019-12-13 11:17] LABS: Platelet Count 83 K/mcL (140-400)
[2019-12-13] MEDS: Budesonide/Formoterol 160/4.5 1 PUFF INH IH SCH ×2 (11:17→20:06)
[2019-12-13 11:21] LABS: BUN/Creatinine Ratio 21 (6-26); Blood Urea Nitrogen 13 mg/dL (8-23); Calcium 8.2 mg/dL (8.6-10.3); Carbon Dioxide 32 mEq/L (23-29); Chloride 103 mEq/L (98-107); Glucose 93 mg/dL (70-105); Magnesium 1.3 mg/dL (1.6-2.6); Osmolality,Calculated 290 (280-300); Phosphorous 2.5 mg/dL (2.7-4.5); Potassium 4.2 mEq/L (3.5-5.1); Sodium 140 mEq/L (136-145); eGFR For African Americans > 60 (> 60); eGFR For Non-African Americans > 60 (> 60)
[2019-12-13] MEDS ORDERED: *HR* Warfarin 5 MG TABLET PO ONE (18:00)
[2019-12-13] MEDS: Metoprolol XL (24 HR) Succ 50 MG TAB.ER.24H PO SCH (20:46)
[2019-12-13] MEDS: *HR* Amiodarone 200 MG TABLET PO SCH (20:47)
[2019-12-13] MEDS: Mirtazapine 15 MG TABLET PO SCH (20:47)
[2019-12-13] MEDS: Acetaminophen 325 MG TABLET PO PRN (23:23)
[2019-12-14] MEDS: Ampicillin/Sulbactam 1,500 MG in 0.9 % Sodium Chloride Mini Bag 100 ML IVPB SCH (05:47)
[2019-12-14 06:07] LABS: INR 2.2; Prothrombin Time 24.9 Seconds (9.4-12.1)
[2019-12-14 06:22] LABS: Albumin 2.7 g/dL (3.5-5.7); BUN/Creatinine Ratio 34 (6-26); Blood Urea Nitrogen 19 mg/dL (8-23); Carbon Dioxide 33 mEq/L (23-29); Chloride 104 mEq/L (98-107); Glucose 95 mg/dL (70-105); Magnesium 1.5 mg/dL (1.6-2.6); Osmolality,Calculated 292 (280-300); Phosphorous 3.1 mg/dL (2.7-4.5); Sodium 140 mEq/L (136-145); eGFR For African Americans > 60 (> 60); eGFR For Non-African Americans > 60 (> 60)
[2019-12-14] MEDS: *HR* Amiodarone 200 MG TABLET PO SCH (08:25)
[2019-12-14] MEDS: Metoprolol XL (24 HR) Succ 50 MG TAB.ER.24H PO SCH (08:25)
[2019-12-14] MEDS: Aspirin Enteric Coated 81 MG Tablet PO SCH (08:25)
[2019-12-14] MEDS: Budesonide/Formoterol 160/4.5 1 PUFF INH IH SCH (10:40)
[2019-12-14 12:09] VITALS: BP 91/64
[2019-12-14] MEDS ORDERED: *HR* Warfarin 2.5 MG TABLET PO ONE (18:00)
== END 2019-12-14 13:25 | disposition home or self-care (01) | DRG 177 ==
LOC: 3BNU → SUATTDRO 16:22
PROVIDERS: ADMIT Family Medicine; ATTEND Internal Medicine